=== PATIENT | female | born 1955 ===

== ENCOUNTER 2018-09-19 16:25 | Inpatient (IN) | payer MEDICARE, OTHER ==
--- NOTE | 2018-09-19 17:20 | ED PDOC ---
HPI: SOB/CHF/COPD Time Seen by Provider: 09/19/18 16:48 Chief Complaint (Nursing): Shortness Of Breath Chief Complaint (Provider): Shortness Of Breath History Per: Patient History/Exam Limitations: no limitations Onset/Duration Of Symptoms: Days (today) Additional Complaint(s): 63 year old female with a history of COPD, asthma, htn, dm, and insomnia due to sleep apnea presents to the ED with shortness of breath onset today. Patient reports she had an asthma attack associated wheezing, prompting her to call an ambulance. Wheezing has since resolved. Patient is currently on medications for COPD and asthma and is taking antibiotics. She is on 3 L of oxygen at home. Patient has a bariatric surgery scheduled for next week. PMD: Stacia Ritter Past Medical History Reviewed: Historical Data, Nursing Documentation, Vital Signs Vital Signs: Last Vital Signs Temp 99.2 F 09/19/18 16:37 Pulse Resp BP 140/82 09/19/18 16:37 Pulse Ox 88 L 09/19/18 16:37 - Medical History PMH: Arthritis, Asthma, COPD (ASTHMA), Diabetes, HTN, Hypercholesterolemia, Chronic Kidney Disease - Surgical History Other surgeries: partial thyroidectomy (x20 years ago) - Family History Family History: States: Unknown Family Hx - Immunization History Hx Tetanus Toxoid Vaccination: No Hx Influenza Vaccination: No Hx Pneumococcal Vaccination: No - Home Medications Home Medications: Ambulatory Orders Medication Instructions Recorded RX: Allopurinol [Zyloprim] 100 mg PO BID 03/11/17 RX: Atorvastatin [Lipitor] 10 mg PO DAILY 03/11/17 RX: Furosemide [Lasix] 40 mg PO MWF 03/11/17 RX: Linagliptin [Tradjenta] 5 mg PO DAILY 03/11/17 RX: Montelukast [Singulair] 10 mg PO DAILY 03/11/17 RX: Sevelamer Carbonate [Renvela] 800 mg PO TID 03/11/17 Albuterol HFA [Ventolin HFA 90 90 mcg Q4 09/19/18 mcg/actuation (8 g)] Diclofenac Sodium [Voltaren] 100 g .ROUTE PRN PRN 09/19/18 Fluticasone/Vilanterol [Breo 1 each IH DAILY 09/19/18 Ellipta 200-25 Mcg INH] Olmesartan/Hydrochlorothiazide 1 tab PO DAILY 09/19/18 [Olmesartan-Hctz 40-12.5 mg Tab] RX: Albuterol 0.083% [Albuterol 0.083 % IH DAILY 09/19/18 0.083% Inhal Clarisse (2.5 mg/3 ml) UD] RX: Carvedilol [Coreg] 6.25 mg PO DAILY 09/19/18 RX: Ketoconazole 2% Cr [Nizoral] 2 % TOP QWK 09/19/18 RX: Levothyroxine [Synthroid] 75 mcg PO DAILY 09/19/18 - Allergies Allergies/Adverse Reactions: Allergies Allergy/AdvReac Type Severity Reaction Status Date / Time No Known Allergies Allergy Verified 05/03/18 18:02 Review of Systems ROS Statement: Except As Marked, All Systems Reviewed And Found Negative Respiratory: Positive for: Shortness of Breath, Wheezing Physical Exam - Reviewed Nursing Documentation Reviewed: Yes Vital Signs Reviewed: Yes - Physical Exam Appears: Positive for: No Acute Distress Head Exam: Positive for: ATRAUMATIC, NORMOCEPHALIC Skin: Positive for: Normal Color, Warm, Dry Eye Exam: Positive for: EOMI, Normal appearance, PERRL Neck: Positive for: Normal, Painless ROM, Supple Cardiovascular/Chest: Positive for: Regular Rate, Rhythm. Negative for: Murmur Respiratory: Positive for: Normal Breath Sounds. Negative for: Respiratory Dis tress Gastrointestinal/Abdominal: Positive for: Normal Exam, Soft, Other (obese). Negative for: Tenderness Extremity: Positive for: Normal ROM (upper and lower). Negative for: Deformity Neurologic/Psych: Positive for: Alert, Oriented (x3) - Laboratory Results Result Diagrams: 09/19/18 17:50 09/19/18 17:50 - ECG O2 Sat by Pulse Oximetry: 88 (RA) Pulse Ox Interpretation: Normal Medical Decision Making Medical Decision Making: Time: 1658 Impression: shortness of breath Differential diagnoses include but are not limited to: COPD, asthma, underlying PE, rule out pna. Plan: --ABG --EKG --BNP --BMP --Troponin --U dip --CBC --D Dimer --CXR Scribe Attestation: Documented by Mayra Hogue, acting as a scribe for Pricilla Arce MD. Provider Scribe Attestation: All medical record entries made by the Scribe were at my direction and personally dictated by me. I have reviewed the chart and agree that the record accurately reflects my personal performance of the history, physical exam, medical decision making, and the department course for this patient. I have also personally directed, reviewed, and agree with the discharge instructions and disposition. Disposition - Clinical Impression Clinical Impression: CHF exacerbation, COPD (chronic obstructive pulmonary disease) - Patient ED Disposition Is Patient to be Admitted: Yes Discussed With : Vivek Erazo Doctor Will See Patient In The: Hospital Counseled Patient/Family Regarding: Studies Performed, Diagnosis - Disposition Disposition Time: 19:00 Condition: FAIR - Pt Status Changed To: Hospital Disposition Of: Observation - POA Present On Arrival: None
[2018-09-19 17:40] LABS: ABG ALLEN TEST YES; ARTERIAL BLOOD GAS HCO3 27.3 mmol/L (21-28); ARTERIAL BLOOD GAS HEMOGLOBIN 15.8 g/dL (11.7-17.4); ARTERIAL BLOOD GAS O2 CAPACITY 20.9 mL/dL (16-24); ARTERIAL BLOOD GAS O2 CONTENT 19.1 ML/dL (15-23); ARTERIAL BLOOD GAS O2 SAT 91.3 % (95-98); ARTERIAL BLOOD GAS PCO2 54 mm/Hg (35-45); ARTERIAL BLOOD GAS PH 7.36 (7.35-7.45); ARTERIAL BLOOD GAS PO2 52 mm/Hg (80-100); ARTERIAL BLOOD GAS TCO2 32.2 mmol/L (22-28)
[2018-09-19] MEDS ORDERED: Albuterol-Ipratrop 3 mg / 0.5 (3 ml) UD INH STA (17:48)
[2018-09-19 18:00] LABS: BASO # 0.1 K/uL (0.0-0.2); BASO % 1.4 % (0.0-2.0); EOS # 0.2 K/uL (0.0-0.7); EOS % 2.7 % (0.0-4.0); HEMOGLOBIN 15.8 g/dL (12.0-16.0); LYMPH # 0.8 K/uL (1.0-4.3); LYMPH % 9.3 % (20.0-40.0); MEAN CELL VOLUME 87.5 fl (81.0-99.0); MEAN CORPUSCULAR HEMOGLOBIN 29.1 pg (27.0-31.0); MEAN CORPUSCULAR HGB CONC 33.3 g/dL (33.0-37.0); MEAN PLATELET VOLUME 8.7 fl (7.2-11.7); MONO # 0.6 K/uL (0.0-0.8); MONO % 6.9 % (0.0-10.0); NEUT # 7.1 K/uL (1.8-7.0); NEUT % 79.7 % (50.0-75.0); NRBC % 0.1 % (0.0-0.0); PLATELET COUNT 247 K/uL (130-400); RBC 5.43 Mil/uL (3.80-5.20); RED CELL DISTRIBUTION WIDTH 20.9 % (11.5-14.5); WHITE BLOOD COUNT 8.9 K/uL (4.8-10.8)
[2018-09-19 18:10] LABS: CALCIUM 9.2 mg/dL (8.4-10.2)
[2018-09-19] MEDS ORDERED: Albuterol-Ipratrop 3 mg / 0.5 (3 ml) UD ONE (18:13)
[2018-09-19 18:22] LABS: TROPONIN I 0.036 ng/mL (0.00-0.120)
[2018-09-19 21:37] LABS: BANDS 2 % (0-2); BASOPHIL 1 % (0-2); EOSINOPHIL 3 % (0-7); HYPOCHROMIC SLIGHT; LYMPHOCYTE 11 % (20-50); MONOCYTE 7 % (0-10); NEUTROPHIL 76 % (42-75); PLATELET ESTIMATE NORMAL (NORMAL); TOTAL CELLS COUNTED 100
[2018-09-19] MEDS: Insulin Regular 100 units/ml SC SCH (22:40)
[2018-09-19 23:06] VITALS: BMI 40.0
[2018-09-19] MEDS: Albuterol-Ipratrop 3 mg / 0.5 (3 ml) UD INH SCH (23:54)
[2018-09-20] MEDS: Albuterol-Ipratrop 3 mg / 0.5 (3 ml) UD INH SCH ×6 (04:33→23:31)
[2018-09-20] MEDS: Levothyroxine 75 MCG TAB PO SCH (05:59)
[2018-09-20] MEDS ORDERED: Sodium Chloride 3% for Inhalation 4 ML VIAL.NEB IH PRN (08:34)
[2018-09-20] MEDS ORDERED: Enoxaparin 60 mg Syringe SC SCH (09:00)
[2018-09-20] MEDS ORDERED: Levothyroxine 75 MCG TAB PO SCH (09:00)
[2018-09-20] MEDS ORDERED: methylPREDNISolone 60 MG in Sodium Chloride 0.9% 50 ML IV SCH (09:00)
--- NOTE | 2018-09-20 09:10 | CARD ---
APPROVED REPORT Date of service: 09/19/2018 EKG Measurement Heart [id number] <Conclusion> Normal sinus rhythm Possible Left atrial enlargement Left axis deviation Anterolateral infarct, age undetermined Abnormal ECG
[2018-09-20] MEDS: Fluticasone-Salmeterol 250-50mcg Diskus IH SCH ×2 (09:26→21:16)
[2018-09-20] MEDS: Insulin Regular 100 units/ml SC SCH ×4 (09:28→23:00)
[2018-09-20 09:35] LABS: CALCIUM 9.7 mg/dL (8.4-10.2)
[2018-09-20 09:47] LABS: TROPONIN I 0.029 ng/mL (0.00-0.120)
[2018-09-20] MEDS: Enoxaparin 30 mg Syringe SC SCH (10:22)
--- NOTE | 2018-09-20 10:40 | CP.PCM.CON ---
History of Present Illness - History of Present Illness History of Present Illness: 63 y/o female admitted with exacerbation of COPD / Asthma Pt claims that she started with SOB / MARSHALL 1-2 weeks ago but became acutely SOB prior to calling Ambulance ++pedal edema BNP: 15,600 this AM EKG: normal Troponin: neg PMH: Arthritis, Asthma, COPD Diabetes, HTN, Hypercholesterolemia, Chronic Kidney Disease partial thyroidectomy Past Patient History - Infectious Disease Hx of Infectious Diseases: None - Past Medical History & Family History Past Medical History?: Yes - Past Social History Smoking Status: Former Smoker - CARDIAC Hx Hypercholesterolemia: Yes Hx Hypertension: Yes - PULMONARY Hx Asthma: Yes Hx Chronic Obstructive Pulmonary Disease (COPD): Yes (ASTHMA) - NEUROLOGICAL Hx Neurological Disorder: No - HEENT Hx HEENT Problems: Yes Other/Comment: eyeglasses for reading - RENAL Hx Chronic Kidney Disease: Yes - ENDOCRINE/METABOLIC Hx Diabetes Mellitus Type 2: Yes - HEMATOLOGICAL/ONCOLOGICAL Hx Blood Disorders: No - INTEGUMENTARY Hx Dermatological Problems: No - MUSCULOSKELETAL/RHEUMATOLOGICAL Hx Arthritis: Yes - GASTROINTESTINAL Hx Gastrointestinal Disorders: No - GENITOURINARY/GYNECOLOGICAL Hx Genitourinary Disorders: No - PSYCHIATRIC Hx Substance Use: No - SURGICAL HISTORY Hx Section: Yes - ANESTHESIA Hx Anesthesia: Yes Hx Anesthesia Reactions: No Hx Malignant Hyperthermia: No Meds Allergies/Adverse Reactions: Allergies Allergy/AdvReac Type Severity Reaction Status Date / Time No Known Allergies Allergy Verified 05/03/18 18:02 - Medications Medications: Current Medications Albuterol/Ipratropium (Duoneb 3 Mg/0.5 Mg (3 Ml) Ud) 3 ml INH RQ4 [facility] Last Admin: 09/20/18 07:49 Dose: 3 ml Allopurinol (Zyloprim) 100 mg PO BID [facility] Last Admin: 09/20/18 09:33 Dose: 100 mg Atorvastatin Calcium (Lipitor) 10 mg PO DAILY [facility] Last Admin: 09/20/18 09:31 Dose: 10 mg Carvedilol (Coreg) 6.25 mg PO Q12 [facility] Last Admin: 09/20/18 09:27 Dose: 6.25 mg Enoxaparin Sodium (Lovenox) 30 mg SC DAILY [facility]; Protocol Last Admin: 09/20/18 10:22 Dose: 30 mg Furosemide (Lasix) 40 mg IVP Q12 [facility] Last Admin: 09/20/18 09:30 Dose: 40 mg Hydrochlorothiazide (Microzide) 12.5 mg PO DAILY [facility] Last Admin: 09/20/18 09:32 Dose: 12.5 mg Insulin Human Regular (Humulin R) 0 units SC ACCU-CHECK [facility]; Protocol Last Admin: 09/20/18 09:28 Dose: 1 unit Levothyroxine Sodium (Synthroid) 75 mcg PO DAILY@0630 [facility] Last Admin: 09/20/18 05:59 Dose: 75 mcg Losartan Potassium (Cozaar) 100 mg PO DAILY [facility] Last Admin: 09/20/18 09:28 Dose: 100 mg Methylprednisolone (Solu-Medrol) 60 mg IV Q12 [facility] Last Admin: 09/20/18 09:35 Dose: 60 mg Montelukast Sodium (Singulair) 10 mg PO DAILY [facility] Last Admin: 09/20/18 09:33 Dose: 10 mg Fluticasone/Salmeterol (Advair Diskus 250/50) 1 puff IH Q12 [facility] Last Admin: 09/20/18 09:26 Dose: 1 puff Sevelamer Carbonate (Renvela) 800 mg PO TID [facility] Last Admin: 09/20/18 09:32 Dose: 800 mg Sitagliptin Phosphate (Januvia) 25 mg PO DAILY [facility] Last Admin: 09/20/18 09:30 Dose: 25 mg Physical Exam - Constitutional Appears: No Acute Distress - Head Exam Head Exam: NORMAL INSPECTION - Eye Exam Eye Exam: Normal appearance - ENT Exam ENT Exam: Normal Exam - Respiratory Exam Respiratory Exam: Decreased Breath Sounds - Cardiovascular Exam Cardiovascular Exam: REGULAR RHYTHM Results - Vital Signs Recent Vital Signs: Last Vital Signs Temp 98.0 F 09/20/18 07:53 Pulse 87 09/20/18 09:28 Resp 18 09/20/18 07:53 BP 144/82 09/20/18 09:30 Pulse Ox 91 L 09/20/18 07:53 - Labs Result Diagrams: 09/19/18 17:50 09/20/18 06:30 Labs: Laboratory Results - last 24 hr 09/19/18 09/19/18 09/19/18 17:12 17:50 17:50 WBC 8.9 RBC 5.43 H Hgb 15.8 Hct 47.5 H MCV 87.5 MCH 29.1 MCHC 33.3 RDW 20.9 H Plt Count 247 MPV 8.7 Neut % (Auto) 79.7 H Lymph % (Auto) 9.3 L [place] % (Auto) 6.9 Eos % (Auto) 2.7 Baso % (Auto) 1.4 Neut # (Auto) 7.1 H Lymph # (Auto) 0.8 L [place] # (Auto) 0.6 Eos # (Auto) 0.2 Baso # (Auto) 0.1 Neutrophils % (Manual) 76 H Band Neutrophils % 2 Lymphocytes % (Manual) 11 L Monocytes % (Manual) 7 Eosinophils % (Manual) 3 Basophils % (Manual) 1 Platelet Estimate Normal Hypochromasia (manual) Slight pCO2 54 H pO2 52 L HCO3 27.3 ABG pH 7.36 ABG Total CO2 32.2 H ABG O2 Saturation 91.3 L ABG O2 Content 19.1 ABG Base Excess 3.5 H ABG Hemoglobin 15.8 ABG Carboxyhemoglobin 3.4 H POC ABG HHb (Measured) 8.2 H ABG Methemoglobin 2.3 ABG O2 Capacity 20.9 Hugo Test Yes A-a O2 Difference 94.0 Hgb O2 Saturation 86.1 L FiO2 30.0 Blood Gas Comments 2l/m.nc Crit Value Read Back N Sodium 140 Potassium 4.6 Chloride 99 Carbon Dioxide 29 Anion Gap 17 BUN 42 H Creatinine 1.6 H Est GFR ( Amer) 39 Est GFR (Non-Af Amer) 32 POC Glucose (mg/dL) Random Glucose 144 H Calcium 9.2 Troponin I 0.0360 NT-Pro-B Natriuret Pep 8470 H Triglycerides Cholesterol LDL Cholesterol Direct HDL Cholesterol Thyroxine (T4) TSH 3rd Generation 09/19/18 09/20/18 09/20/18 22:39 05:13 06:30 WBC RBC Hgb Hct MCV MCH MCHC RDW Plt Count MPV Neut % (Auto) Lymph % (Auto) [place] % (Auto) Eos % (Auto) Baso % (Auto) Neut # (Auto) Lymph # (Auto) [place] # (Auto) Eos # (Auto) Baso # (Auto) Neutrophils % (Manual) Band Neutrophils % Lymphocytes % (Manual) Monocytes % (Manual) Eosinophils % (Manual) Basophils % (Manual) Platelet Estimate Hypochromasia (manual) pCO2 pO2 HCO3 ABG pH ABG Total CO2 ABG O2 Saturation ABG O2 Content ABG Base Excess ABG Hemoglobin ABG Carboxyhemoglobin POC ABG HHb (Measured) ABG Methemoglobin ABG O2 Capacity Hugo Test A-a O2 Difference Hgb O2 Saturation FiO2 Blood Gas Comments Crit Value Read Back Sodium 140 Potassium 3.9 Chloride 97 L Carbon Dioxide 28 Anion Gap 19 BUN 45 H Creatinine 1.9 H Est GFR ( Amer) 32 Est GFR (Non-Af Amer) 27 POC Glucose (mg/dL) 126 H 195 H Random Glucose 231 H Calcium 9.7 Troponin I 0.0290 NT-Pro-B Natriuret Pep 18535 H Triglycerides 56 Cholesterol 140 LDL Cholesterol Direct 45 HDL Cholesterol 81 H Thyroxine (T4) 5.88 TSH 3rd Generation 0.94 Assessment & Plan (1) Acute on chronic systolic congestive heart failure Assessment and Plan: Agree with Lasix 40mg IV BID will follow Status: Acute (2) Asthma exacerbation Status: Acute (3) COPD exacerbation Status: Resolved
--- NOTE | 2018-09-20 14:08 | RAD ---
Date of service: 09/19/2018 PROCEDURE: CHEST RADIOGRAPH, 1 VIEW HISTORY: dyspnea COMPARISON: None available. FINDINGS: LUNGS: Mild pulmonary vascular congestion. PLEURA: No pneumothorax or pleural fluid seen. CARDIOVASCULAR: No aortic atherosclerotic calcification present. Cardiomegaly. OSSEOUS STRUCTURES: No significant abnormalities. VISUALIZED UPPER ABDOMEN: Normal. OTHER FINDINGS: None. IMPRESSION: Mild CHF. Findings accentuated by technique including poor inspiratory effort and under penetrated exposure.
--- NOTE | 2018-09-20 20:11 | HP ---
HISTORY OF PRESENT ILLNESS: Ms. hSea is a 63-year-old morbidly obese female who was admitted via the emergency room because of sudden onset of shortness of breath on the day of admission. She indicates that she has a history of chronic obstructive pulmonary disease, hypertension, diabetes mellitus, sleep apnea syndrome, recurrent insomnia, pedal edema and questionable coronary artery disease. She also has a history of diabetes mellitus and hypertension. FAMILY HISTORY: Noncontributory. SOCIAL HISTORY: Socially, she quit smoking many years ago, does not drink alcohol. Lives at home with her daughter. REVIEW OF SYSTEMS: Remarkable for occasional shortness of breath. PAST SURGICAL HISTORY: As part of her surgical history, she had a partial thyroidectomy about 20 years ago. PHYSICAL EXAMINATION: GENERAL: The patient is morbidly obese. She is alert, oriented, appears to be comfortable this morning. VITAL SIGNS: Blood pressure 140/82, , respiratory rate 20 per minute, O2 saturation 91% on nasal cannula oxygen, temperature maximum 98 degrees Fahrenheit with a pulse rate of 87 per minute. SKIN: Shows fair turgor. Pupils are equal, round and reactive to light and accommodation. Mouth shows fair hygiene. LUNGS: Poor aeration bilaterally with audible wheezing and rales. HEART: S1, S2. ABDOMEN: Soft, nontender. No organomegaly. EXTREMITIES: Trace edema of both lower extremities. CENTRAL NERVOUS SYSTEM: Exam is grossly intact. LABORATORY DATA: Remarkable for sodium of 140, potassium 4.6, BUN 42, creatinine 1.6, serum glucose 144. Troponin 0.0360. ProBNP 8470 which is elevated. WBC 8.9, hemoglobin 15.8, platelet count 247,000. Arterial blood gas done on 2 L nasal cannula, pH of 7.36, pCO2 of 54, pO2 of 52 and O2 saturation 91.3. Chest x-ray official report pending. Due to the patient's poor habitus, interpretation is difficult. EKG is remarkable for normal sinus rhythm, possible left atrial enlargement, left axis deviation, anteroseptal infarct age undetermined. IMPRESSION: Acute congestive heart failure, one has to rule out acute coronary syndrome; acute exacerbation of chronic obstructive pulmonary disease; history of obstructive sleep apnea syndrome; morbid obesity; history of hypertension; history of diabetes mellitus with hyperglycemia type 2, poorly controlled; history of poor compliance to therapy; history of partial thyroidectomy in the past. PLAN: Intravenous diuretics, oxygen as well as bronchodilators. Would obtain Cardiology evaluation. The patient wants to go home today and she is advised against that. We will discuss with her daughters before she decides on what to do. We will continue therapy as ordered. Further therapy will depend on findings. Vivek Erazo MD
--- NOTE | 2018-09-21 00:57 | CARD ---
APPROVED REPORT Date of service: 09/20/2018 EXAM: Two-dimensional and M-mode echocardiogram with Doppler and color Doppler. Other Information Quality : GoodRhythm : NSR INDICATION Congestive Heart Failure COPD 2D DIMENSIONS IVSd1.85 (0.7-1.1cm)LVDd3.23 (3.9-5.9cm) LVOT Diameter2.08 (1.8-2.4cm)PWd1.92 (0.7-1.1cm) IVSs2.12 (0.8-1.2cm)LVDs1.94 (2.5-4.0cm) FS (%) 40.1 %PWs2.36 (0.8-1.2cm) M-Mode DIMENSIONS Left Atrium (MM)4.41 (2.5-4.0cm)IVSd1.91 (0.7-1.1cm) Aortic Root2.91 (2.2-3.7cm)LVDd3.26 (4.0-5.6cm) Aortic Cusp Exc.1.74 (1.5-2.0cm)PWd2.00 (0.7-1.1cm) IVSs2.38 cmFS (%) 42 % LVDs1.88 (2.0-3.8cm)PWs2.09 cm Aortic Valve AoV Peak Jppvtfvz636.7cm/sAoV VTI26.2cmAO Peak GR.8mmHg LVOT Peak Sozpsebr76.6cm/[place] Mean GR.5mmHgAVA (VMAX)1.01cm2 Mitral Valve E/A ratio0.0 TDI E/Lateral E'0.0E/Medial E'0.0 Tricuspid Valve TR Peak [id number]/sRAP [id number] Peak Gr.52mmHg [id number] LEFT VENTRICLE The left ventricle is normal size. There is normal left ventricular wall thickness. The left ventricular systolic function is normal. The estimated ejection fraction is 60-65% No regional wall motion abnormalities noted.. The left ventricular diastolic function is normal. No left ventricle thrombus noted on this study. There is no ventricular septal defect visualized. There is no left ventricular aneurysm. There is no mass noted in the left ventricle. RIGHT VENTRICLE The right ventricle is normal size. The right ventricle is mildly dilated. There is normal right ventricular wall thickness. The right ventricular systolic function is normal. Systolic function is mildly to moderately reduced. ATRIA The left atrium size is normal. The left atrium is mildly dilated. The right atrium is mildly dilated. The interatrial septum is intact with no evidence for an atrial septal defect. AORTIC VALVE The aortic valve is normal in structure. No aortic regurgitation is present. There is no aortic valvular stenosis. There is no aortic valvular vegetation. MITRAL VALVE The mitral valve is normal in structure. There is no evidence of mitral valve prolapse. There is no mitral valve stenosis. There is no mitral valve regurgitation noted. TRICUSPID VALVE The tricuspid valve is normal in structure. There is no tricuspid valve regurgitation noted. There is mild to moderate tricuspid regurgitation. Estimated peak RVSP= 62mm Hg. Suggests moderate pulmonary hypertension There is no tricuspid valve prolapse or vegetation. There is no tricuspid valve stenosis. PULMONIC VALVE The pulmonary valve is normal in structure. There is no pulmonic valvular regurgitation. There is no pulmonic valvular stenosis. GREAT VESSELS The aortic root is normal in size. The ascending aorta is normal in size. The pulmonary artery is normal. The IVC is normal in size and collapses >50% with inspiration. PERICARDIAL EFFUSION There is no pericardial effusion. There is no pleural effusion. <Conclusion> Normal LV systolic function The estimated ejection fraction >70% Severe concentric LVH Mild to moderate RV systolic dysfunction with mildly dilated RV Mildly dilated LA and RA Mild to moderate TR . Estimated peak RVSP=62mmHg. Moderate pulmonary hypertension
[2018-09-21] MEDS: Albuterol-Ipratrop 3 mg / 0.5 (3 ml) UD INH SCH ×5 (04:51→19:10)
[2018-09-21] MEDS: Levothyroxine 75 MCG TAB PO SCH (05:41)
[2018-09-21] MEDS: Fluticasone-Salmeterol 250-50mcg Diskus IH SCH ×2 (08:43→21:08)
[2018-09-21] MEDS: Insulin Regular 100 units/ml SC SCH ×4 (08:47→23:00)
[2018-09-21] MEDS: Enoxaparin 30 mg Syringe SC SCH (08:51)
--- NOTE | 2018-09-21 10:22 | CP.PCM.PN ---
Subjective - Date & Time of Evaluation Date of Evaluation: 09/21/18 Time of Evaluation: 10:24 - Subjective Subjective: SOB IMPROVING NO CHEST PAINS STILL COUGHING Objective - Vital Signs/Intake and Output Vital Signs (last 24 hours): Temp Pulse Resp BP Pulse Ox 97.5 F L 78 22 124/73 95 09/21/18 04:47 09/21/18 08:46 09/21/18 04:47 09/21/18 08:49 09/21/18 04:47 - Medications Medications: Current Medications Albuterol/Ipratropium (Duoneb 3 Mg/0.5 Mg (3 Ml) Ud) 3 ml INH RQ4 [facility] Last Admin: 09/21/18 07:19 Dose: 3 ml Allopurinol (Zyloprim) 100 mg PO BID [facility] Last Admin: 09/21/18 08:52 Dose: 100 mg Atorvastatin Calcium (Lipitor) 10 mg PO DAILY [facility] Last Admin: 09/21/18 08:50 Dose: 10 mg Carvedilol (Coreg) 6.25 mg PO Q12 [facility] Last Admin: 09/21/18 08:44 Dose: 6.25 mg Enoxaparin Sodium (Lovenox) 30 mg SC DAILY [facility]; Protocol Last Admin: 09/21/18 08:51 Dose: 30 mg Furosemide (Lasix) 40 mg IVP Q12 [facility] Last Admin: 09/21/18 08:49 Dose: 40 mg Hydrochlorothiazide (Microzide) 12.5 mg PO DAILY [facility] Last Admin: 09/21/18 08:51 Dose: 12.5 mg Insulin Human Regular (Humulin R) 0 units SC ACCU-CHECK [facility]; Protocol Last Admin: 09/21/18 08:47 Dose: 1 unit Levothyroxine Sodium (Synthroid) 75 mcg PO DAILY@0630 [facility] Last Admin: 09/21/18 05:41 Dose: 75 mcg Losartan Potassium (Cozaar) 100 mg PO DAILY [facility] Last Admin: 09/21/18 08:46 Dose: 100 mg Methylprednisolone (Solu-Medrol) 60 mg IV Q12 [facility] Last Admin: 09/21/18 08:53 Dose: 60 mg Montelukast Sodium (Singulair) 10 mg PO DAILY [facility] Last Admin: 09/21/18 08:52 Dose: 10 mg Fluticasone/Salmeterol (Advair Diskus 250/50) 1 puff IH Q12 [facility] Last Admin: 09/21/18 08:43 Dose: 1 puff Sevelamer Carbonate (Renvela) 800 mg PO TID [facility] Last Admin: 09/21/18 08:52 Dose: 800 mg Sitagliptin Phosphate (Januvia) 25 mg PO DAILY [facility] Last Admin: 09/21/18 08:48 Dose: 25 mg - Labs Labs: 09/19/18 17:50 09/20/18 06:30 - Constitutional Appears: Chronically Ill - Head Exam Head Exam: ATRAUMATIC, NORMAL INSPECTION, NORMOCEPHALIC - Eye Exam Eye Exam: EOMI, Normal appearance, PERRL Pupil Exam: NORMAL ACCOMODATION, PERRL - ENT Exam ENT Exam: Mucous Membranes Moist, Normal Exam - Neck Exam Neck Exam: Full ROM, Normal Inspection. absent: Lymphadenopathy - Respiratory Exam Respiratory Exam: Decreased Breath Sounds, Prolonged Expiratory Phase, Rales, NORMAL BREATHING PATTERN - Cardiovascular Exam Cardiovascular Exam: REGULAR RHYTHM, +S1, +S2. absent: Murmur - GI/Abdominal Exam GI & Abdominal Exam: Soft, Normal Bowel Sounds. absent: Tenderness - Rectal Exam Rectal Exam: NORMAL INSPECTION - Extremities Exam Extremities Exam: Full ROM, Normal Capillary Refill, Pedal Edema. absent: Joint Swelling - Back Exam Back Exam: NORMAL INSPECTION - Neurological Exam Neurological Exam: Alert, Awake, CN II-XII Intact, Normal Gait, Oriented x3 - Psychiatric Exam Psychiatric exam: Normal Affect, Normal Mood - Skin Skin Exam: Dry, Intact, Normal Color, Warm Assessment and Plan - Assessment and Plan (Free Text) Assessment: ACUTE CHF ACUTE EXAC OF COPD MORBID OBESITY SLEEP APNEA SYND HYPOTHYROIDISM HYPOXEMIA Plan: CONTINUE CURRENT RX REPEAT LABS IN AM D/C IN AM IF STABLE
--- NOTE | 2018-09-21 14:00 | RAD ---
Date of service: 09/21/2018 HISTORY: CHF COMPARISON: No prior. TECHNIQUE: Chest PA and lateral FINDINGS: LUNGS: Improving pulmonary vascular congestion. No focal infiltrates. PLEURA: No significant pleural effusion identified. No pneumothorax apparent. CARDIOVASCULAR: Atherosclerotic calcifications identified primarily aortic arch. Normal size heart. OSSEOUS STRUCTURES: No significant abnormalities. VISUALIZED UPPER ABDOMEN: Normal. OTHER FINDINGS: None. IMPRESSION: Improving CHF/pulmonary vascular congestion.
[2018-09-21] MEDS: MethylPREDNISolone 40 mg Vial IV SCH (20:13)
--- NOTE | 2018-09-21 22:30 | CP.PCM.PCO ---
Addendum Addendum: 09/21/18 21:32 The publicity writer was called about this 63 y/o F with a PMHx of DM, HTN, CHF and COPD due to tachycardia, HR in 120-150 range. director craft center seemed to showed atrial fibrillation. Pt reported feeling OK, denied chest pain, diaphoresis, aggravated SOB, nausea, vomiting or feeling anxious. Last Duoneb treatment ~19:30pm, 1 hour before presentation. --EKG was ordered and performed by bedside. Atrial fibrillation with RVR noted. --Cardizem 10mg IV administered. --After 15 minutes, HR still in the 130s. --Cardizem drip with cardizem bolus 5mg ordered. --[id number] >2, consider anticoagulation >A/P: 63 y/o F with a PMHx of CHF, HTN and DM2 presented new onset of atrial fibrillation. --Consider changing Albuterol neb to Levalbuterol and to start anticoagulation. --Nurse will contact pt's attending physician for anticoagulation therapy.
[2018-09-21] MEDS: Levalbuterol 1.25 MG/3 ML Inhal Soln UD INH SCH (23:52)
[2018-09-22] MEDS: Levothyroxine 75 MCG TAB PO SCH (05:41)
[2018-09-22 06:14] LABS: HEMOGLOBIN 15.2 g/dL (12.0-16.0); MEAN CELL VOLUME 87.7 fl (81.0-99.0); MEAN CORPUSCULAR HEMOGLOBIN 28.7 pg (27.0-31.0); MEAN CORPUSCULAR HGB CONC 32.7 g/dL (33.0-37.0); RBC 5.3 Mil/uL (3.80-5.20); RED CELL DISTRIBUTION WIDTH 21.1 % (11.5-14.5); WHITE BLOOD COUNT 15.4 K/uL (4.8-10.8)
[2018-09-22] MEDS: Insulin Regular 100 units/ml SC SCH ×4 (06:41→22:19)
[2018-09-22] MEDS: Levalbuterol 1.25 MG/3 ML Inhal Soln UD INH SCH ×3 (07:45→23:38)
[2018-09-22] MEDS: Fluticasone-Salmeterol 250-50mcg Diskus IH SCH ×2 (08:30→21:05)
[2018-09-22] MEDS: Enoxaparin 30 mg Syringe SC SCH (08:33)
[2018-09-22] MEDS: MethylPREDNISolone 40 mg Vial IV SCH (08:46)
--- NOTE | 2018-09-22 10:50 | CP.PCM.PN ---
Subjective - Date & Time of Evaluation Date of Evaluation: 09/22/18 Time of Evaluation: 10:52 - Subjective Subjective: EVENTS OF LAST NIGHT NOTED DEVELOPED RAPID ATRIAL FIB LAST NIGHT DENIES CHEST PAINS OR SOB WANTS TO GO HOME Objective - Vital Signs/Intake and Output Vital Signs (last 24 hours): Temp Pulse Resp BP Pulse Ox 97.7 F 79 18 117/76 94 L 09/22/18 07:59 09/22/18 07:59 09/22/18 07:59 09/22/18 08:34 09/22/18 07:59 Intake and Output: 09/22/18 09/22/18 06:59 18:59 Intake Total 440 Output Total 1 Balance 439 - Medications Medications: Current Medications Allopurinol (Zyloprim) 100 mg PO BID [facility] Last Admin: 09/22/18 08:31 Dose: 100 mg Atorvastatin Calcium (Lipitor) 10 mg PO DAILY [facility] Last Admin: 09/22/18 08:34 Dose: 10 mg Carvedilol (Coreg) 6.25 mg PO Q12 [facility] Last Admin: 09/22/18 08:37 Dose: Not Given Enoxaparin Sodium (Lovenox) 30 mg SC DAILY [facility]; Protocol Last Admin: 09/22/18 08:33 Dose: 30 mg Furosemide (Lasix) 40 mg IVP Q12 [facility] Last Admin: 09/22/18 08:34 Dose: 40 mg Hydrochlorothiazide (Microzide) 12.5 mg PO DAILY [facility] Last Admin: 09/22/18 08:33 Dose: 12.5 mg Diltiazem HCl 125 mg/ Sodium (Chloride) 125 mls @ 5 mls/hr IV .Q24H [facility]; Protocol Stop: 09/22/18 21:17 Last Admin: 09/21/18 22:31 Dose: 5 mg/hr, 5 mls/hr Insulin Human Regular (Humulin R) 0 units SC ACCU-CHECK [facility]; Protocol Last Admin: 09/22/18 06:41 Dose: 2 unit Levalbuterol HCl (Xopenex) 1.25 mg INH RQ8 [facility] Last Admin: 09/22/18 07:45 Dose: 1.25 mg Levothyroxine Sodium (Synthroid) 75 mcg PO DAILY@0630 [facility] Last Admin: 09/22/18 05:41 Dose: 75 mcg Losartan Potassium (Cozaar) 100 mg PO DAILY [facility] Last Admin: 09/22/18 08:37 Dose: Not Given Methylprednisolone (Solu-Medrol) 40 mg IV Q12 [facility] Last Admin: 09/22/18 08:46 Dose: 40 mg Montelukast Sodium (Singulair) 10 mg PO DAILY [facility] Last Admin: 09/22/18 08:32 Dose: 10 mg Fluticasone/Salmeterol (Advair Diskus 250/50) 1 puff IH Q12 [facility] Last Admin: 09/22/18 08:30 Dose: 1 puff Sevelamer Carbonate (Renvela) 800 mg PO TID [facility] Last Admin: 09/22/18 08:32 Dose: 800 mg Sitagliptin Phosphate (Januvia) 25 mg PO DAILY [facility] Last Admin: 09/22/18 08:36 Dose: 25 mg - Labs Labs: 09/22/18 04:30 09/22/18 04:30 - Constitutional Appears: No Acute Distress - Head Exam Head Exam: ATRAUMATIC, NORMAL INSPECTION, NORMOCEPHALIC - Eye Exam Eye Exam: EOMI, Normal appearance, PERRL Pupil Exam: NORMAL ACCOMODATION, PERRL - ENT Exam ENT Exam: Mucous Membranes Moist, Normal Exam - Neck Exam Neck Exam: Full ROM, Normal Inspection. absent: Lymphadenopathy - Respiratory Exam Respiratory Exam: Decreased Breath Sounds, Prolonged Expiratory Phase, NORMAL BREATHING PATTERN - Cardiovascular Exam Cardiovascular Exam: REGULAR RHYTHM, +S1, +S2. absent: Murmur - GI/Abdominal Exam GI & Abdominal Exam: Soft, Normal Bowel Sounds. absent: Tenderness - Rectal Exam Rectal Exam: NORMAL INSPECTION - Extremities Exam Extremities Exam: Full ROM, Normal Capillary Refill, Normal Inspection. absent: Joint Swelling, Pedal Edema - Back Exam Back Exam: NORMAL INSPECTION - Neurological Exam Neurological Exam: Alert, Awake, CN II-XII Intact, Normal Gait, Oriented x3 - Psychiatric Exam Psychiatric exam: Normal Affect, Normal Mood - Skin Skin Exam: Dry, Intact, Normal Color, Warm - Additional Findings Additional findings: TELE--ATRIAL FIB WITH CONTROLLED V RESPONSE Assessment and Plan - Assessment and Plan (Free Text) Assessment: CHF--IMPROVED NEW ONSET ATRIAL FIB ASHD HTN MORBID OBESITY HX OF SLEEP APNEA HYPOTHYROIDISM Plan: CASE DISCUSSED WITH HARD CANDY SPINNER WILL D/C CARDIZEM DRIP AND BEGIN PO CARDIZEM AND ELIQUIS
--- NOTE | 2018-09-22 11:10 | CP.PCM.PN ---
Subjective - Date & Time of Evaluation Date of Evaluation: 09/22/18 Time of Evaluation: 11:00 - Subjective Subjective: Breathing easily no complaints HR controlled Cardizem IV to be d/c ed Started on PO BNP: 6080 Objective - Vital Signs/Intake and Output Vital Signs (last 24 hours): Temp Pulse Resp BP Pulse Ox 97.7 F 79 18 117/76 94 L 09/22/18 07:59 09/22/18 07:59 09/22/18 07:59 09/22/18 08:34 09/22/18 07:59 Intake and Output: 09/22/18 09/22/18 06:59 18:59 Intake Total 440 Output Total 1 Balance 439 - Medications Medications: Current Medications Allopurinol (Zyloprim) 100 mg PO BID [facility] Last Admin: 09/22/18 08:31 Dose: 100 mg Apixaban (Eliquis) 2.5 mg PO DAILY [facility]; Protocol Atorvastatin Calcium (Lipitor) 10 mg PO DAILY [facility] Last Admin: 09/22/18 08:34 Dose: 10 mg Carvedilol (Coreg) 6.25 mg PO Q12 [facility] Last Admin: 09/22/18 08:37 Dose: Not Given Diltiazem HCl (Cardizem) 30 mg PO TID [facility] Furosemide (Lasix) 40 mg PO DAILY [facility] Hydrochlorothiazide (Microzide) 12.5 mg PO DAILY [facility] Last Admin: 09/22/18 08:33 Dose: 12.5 mg Insulin Human Regular (Humulin R) 0 units SC ACCU-CHECK [facility]; Protocol Last Admin: 09/22/18 06:41 Dose: 2 unit Levalbuterol HCl (Xopenex) 1.25 mg INH RQ8 [facility] Last Admin: 09/22/18 07:45 Dose: 1.25 mg Levothyroxine Sodium (Synthroid) 75 mcg PO DAILY@0630 [facility] Last Admin: 09/22/18 05:41 Dose: 75 mcg Losartan Potassium (Cozaar) 100 mg PO DAILY [facility] Last Admin: 09/22/18 08:37 Dose: Not Given Methylprednisolone (Solu-Medrol) 40 mg IV DAILY [facility] Montelukast Sodium (Singulair) 10 mg PO DAILY [facility] Last Admin: 09/22/18 08:32 Dose: 10 mg Fluticasone/Salmeterol (Advair Diskus 250/50) 1 puff IH Q12 [facility] Last Admin: 09/22/18 08:30 Dose: 1 puff Sevelamer Carbonate (Renvela) 800 mg PO TID [facility] Last Admin: 09/22/18 08:32 Dose: 800 mg Sitagliptin Phosphate (Januvia) 25 mg PO DAILY [facility] Last Admin: 09/22/18 08:36 Dose: 25 mg - Labs Labs: 09/22/18 04:30 09/22/18 04:30 Assessment and Plan (1) Acute on chronic systolic congestive heart failure Status: Acute (2) Asthma exacerbation Status: Acute
[2018-09-23 06:11] LABS: HEMOGLOBIN 15.9 g/dL (12.0-16.0); MEAN CELL VOLUME 88.1 fl (81.0-99.0); MEAN CORPUSCULAR HEMOGLOBIN 29.1 pg (27.0-31.0); MEAN CORPUSCULAR HGB CONC 33.1 g/dL (33.0-37.0); RBC 5.47 Mil/uL (3.80-5.20); RED CELL DISTRIBUTION WIDTH 21.1 % (11.5-14.5); WHITE BLOOD COUNT 15.7 K/uL (4.8-10.8)
[2018-09-23] MEDS: Levothyroxine 75 MCG TAB PO SCH (06:30)
[2018-09-23 06:40] LABS: CALCIUM 9.8 mg/dL (8.4-10.2)
[2018-09-23] MEDS: Insulin Regular 100 units/ml SC SCH ×4 (07:45→23:30)
[2018-09-23] MEDS: Levalbuterol 1.25 MG/3 ML Inhal Soln UD INH SCH ×3 (08:15→23:42)
--- NOTE | 2018-09-23 08:58 | CP.PCM.PN ---
Subjective - Date & Time of Evaluation Date of Evaluation: 09/23/18 Time of Evaluation: 09:00 - Subjective Subjective: SOB IMPROVED NO CHEST PAINS CASE DISCUSSED AT LENGHT WITH PT'S DAUGHTER--SHE INDICATES THAT PT IS SCHEDULED FOR BARIATRIC SURGEY SOON--ADVISED AGAINST PROCEDURE UNTILL CARDIAC AND NEPHROLOGY ISSUES RESOLVE Objective - Vital Signs/Intake and Output Vital Signs (last 24 hours): Temp Pulse Resp BP Pulse Ox 97.8 F 66 18 126/83 99 09/23/18 07:47 09/23/18 07:47 09/23/18 07:47 09/23/18 07:47 09/23/18 07:47 - Medications Medications: Current Medications Allopurinol (Zyloprim) 100 mg PO BID [facility] Last Admin: 09/22/18 18:37 Dose: 100 mg Apixaban (Eliquis) 2.5 mg PO BID [facility]; Protocol Last Admin: 09/22/18 17:04 Dose: 2.5 mg Atorvastatin Calcium (Lipitor) 10 mg PO DAILY [facility] Last Admin: 09/22/18 08:34 Dose: 10 mg Carvedilol (Coreg) 6.25 mg PO Q12 [facility] Last Admin: 09/22/18 21:04 Dose: Not Given Diltiazem HCl (Cardizem) 30 mg PO TID [facility] Last Admin: 09/22/18 17:03 Dose: 30 mg Furosemide (Lasix) 40 mg PO DAILY [facility] Hydrochlorothiazide (Microzide) 12.5 mg PO DAILY [facility] Last Admin: 09/22/18 08:33 Dose: 12.5 mg Insulin Human Regular (Humulin R) 0 units SC ACCU-CHECK [facility]; Protocol Last Admin: 09/22/18 22:19 Dose: Not Given Levalbuterol HCl (Xopenex) 1.25 mg INH RQ8 [facility] Last Admin: 09/23/18 08:15 Dose: 1.25 mg Levothyroxine Sodium (Synthroid) 75 mcg PO DAILY@0630 [facility] Last Admin: 09/23/18 06:30 Dose: 75 mcg Losartan Potassium (Cozaar) 100 mg PO DAILY [facility] Last Admin: 09/22/18 08:37 Dose: Not Given Methylprednisolone (Solu-Medrol) 40 mg IV DAILY [facility] Montelukast Sodium (Singulair) 10 mg PO DAILY [facility] Last Admin: 09/22/18 08:32 Dose: 10 mg Fluticasone/Salmeterol (Advair Diskus 250/50) 1 puff IH Q12 [facility] Last Admin: 09/22/18 21:05 Dose: 1 puff Sevelamer Carbonate (Renvela) 800 mg PO TID [facility] Last Admin: 09/22/18 18:36 Dose: 800 mg Sitagliptin Phosphate (Januvia) 25 mg PO DAILY [facility] Last Admin: 09/22/18 08:36 Dose: 25 mg - Labs Labs: 09/23/18 04:50 09/23/18 04:50 - Constitutional Appears: No Acute Distress - Head Exam Head Exam: ATRAUMATIC, NORMAL INSPECTION, NORMOCEPHALIC - Eye Exam Eye Exam: EOMI, Normal appearance, PERRL Pupil Exam: NORMAL ACCOMODATION, PERRL - ENT Exam ENT Exam: Mucous Membranes Moist, Normal Exam - Neck Exam Neck Exam: Full ROM, Normal Inspection. absent: Lymphadenopathy - Respiratory Exam Respiratory Exam: Decreased Breath Sounds, Prolonged Expiratory Phase, NORMAL BREATHING PATTERN - Cardiovascular Exam Cardiovascular Exam: REGULAR RHYTHM, +S1, +S2. absent: Murmur - GI/Abdominal Exam GI & Abdominal Exam: Soft, Normal Bowel Sounds. absent: Tenderness - Rectal Exam Rectal Exam: NORMAL INSPECTION - Extremities Exam Extremities Exam: Full ROM, Normal Capillary Refill, Normal Inspection. absent: Joint Swelling, Pedal Edema - Back Exam Back Exam: NORMAL INSPECTION - Neurological Exam Neurological Exam: Alert, Awake, CN II-XII Intact, Normal Gait, Oriented x3 - Psychiatric Exam Psychiatric exam: Normal Affect, Normal Mood - Skin Skin Exam: Dry, Intact, Normal Color, Warm Assessment and Plan - Assessment and Plan (Free Text) Assessment: CHF--IMPROVED COPD ATRIAL FIB--RSR HX OF [place] SYNDROME ACUTE KIDNEY INJURY DM HTN Plan: HOLD DIURETICS NEPHROLOGY EVAL
--- NOTE | 2018-09-23 09:01 | CARD ---
APPROVED REPORT Date of service: 09/23/2018 EKG Measurement Heart [id number] <Conclusion> Normal sinus rhythm Possible Left atrial enlargement Poor R wave progression in Precordial leads Abnormal ECG
--- NOTE | 2018-09-23 09:12 | CARD ---
APPROVED REPORT Date of service: 09/21/2018 EKG Measurement Heart [id number] <Conclusion> Atrial fibrillation with rapid ventricular response Left axis deviation Poor R wave progression in Precordial leads Abnormal ECG
--- NOTE | 2018-09-23 09:12 | CARD ---
APPROVED REPORT Date of service: 09/21/2018 EKG Measurement Heart [id number] <Conclusion> Atrial fibrillation with rapid ventricular response Anterolateral infarct, age undetermined Abnormal ECG
[2018-09-23] MEDS: Fluticasone-Salmeterol 250-50mcg Diskus IH SCH ×2 (09:15→21:56)
[2018-09-23] MEDS: Sodium Chloride 0.45% 1,000 ML IV SCH (09:45)
[2018-09-23] MEDS: MethylPREDNISolone 40 mg Vial IV SCH (09:47)
--- NOTE | 2018-09-23 15:45 | CP.PCM.PN ---
Subjective - Date & Time of Evaluation Date of Evaluation: 09/23/18 Time of Evaluation: 10:00 - Subjective Subjective: Doing well breathing easily HR controlled Objective - Vital Signs/Intake and Output Vital Signs (last 24 hours): Temp Pulse Resp BP Pulse Ox 97.5 F L 78 18 121/85 96 09/23/18 12:00 09/23/18 12:25 09/23/18 12:00 09/23/18 12:25 09/23/18 12:00 - Medications Medications: Current Medications Allopurinol (Zyloprim) 100 mg PO BID [facility] Last Admin: 09/23/18 09:21 Dose: 100 mg Apixaban (Eliquis) 2.5 mg PO BID [facility]; Protocol Last Admin: 09/23/18 09:17 Dose: 2.5 mg Atorvastatin Calcium (Lipitor) 10 mg PO DAILY [facility] Last Admin: 09/23/18 09:20 Dose: 10 mg Carvedilol (Coreg) 6.25 mg PO Q12 [facility] Last Admin: 09/23/18 09:16 Dose: 6.25 mg Diltiazem HCl (Cardizem) 30 mg PO TID [facility] Last Admin: 09/23/18 12:25 Dose: 30 mg Furosemide (Lasix) 40 mg PO DAILY [facility] Last Admin: 09/23/18 09:20 Dose: Not Given Hydrochlorothiazide (Microzide) 12.5 mg PO DAILY [facility] Last Admin: 09/23/18 12:27 Dose: 12.5 mg Sodium Chloride (Sodium Chloride 0.45%) 1,000 mls @ 50 mls/hr IV .Q20H [facility] Stop: 09/24/18 09:16 Insulin Human Regular (Humulin R) 0 units SC ACCU-CHECK [facility]; Protocol Last Admin: 09/23/18 12:26 Dose: 4 unit Levalbuterol HCl (Xopenex) 1.25 mg INH RQ8 [facility] Last Admin: 09/23/18 15:17 Dose: 1.25 mg Levothyroxine Sodium (Synthroid) 75 mcg PO DAILY@0630 [facility] Last Admin: 09/23/18 06:30 Dose: 75 mcg Losartan Potassium (Cozaar) 100 mg PO DAILY [facility] Last Admin: 09/23/18 12:25 Dose: 100 mg Methylprednisolone (Solu-Medrol) 40 mg IV DAILY [facility] Last Admin: 09/23/18 09:47 Dose: 40 mg Montelukast Sodium (Singulair) 10 mg PO DAILY [facility] Last Admin: 09/23/18 09:21 Dose: 10 mg Fluticasone/Salmeterol (Advair Diskus 250/50) 1 puff IH Q12 [facility] Last Admin: 09/23/18 09:15 Dose: 1 puff Sevelamer Carbonate (Renvela) 800 mg PO TID [facility] Last Admin: 09/23/18 12:27 Dose: 800 mg Sitagliptin Phosphate (Januvia) 25 mg PO DAILY [facility] Last Admin: 09/23/18 09:19 Dose: 25 mg - Labs Labs: 09/23/18 04:50 09/23/18 04:50 Assessment and Plan (1) Acute on chronic systolic congestive heart failure Status: Acute (2) Asthma exacerbation Status: Acute
--- NOTE | 2018-09-23 19:28 | CP.PCM.CON ---
History of Present Illness - History of Present Illness History of Present Illness: pt is seen and examined, full consult is dictated #[id number] 1.paramjit on ckd 2.htn 3.dm 4.exaccerbation of copd 5. chf check urine lytes, osm, ivf 1/2 ns at 50 ml/hr bmp in am Past Patient History - Infectious Disease Hx of Infectious Diseases: None - Past Medical History & Family History Past Medical History?: Yes - Past Social History Smoking Status: Former Smoker - CARDIAC Hx Hypercholesterolemia: Yes Hx Hypertension: Yes - PULMONARY Hx Asthma: Yes Hx Chronic Obstructive Pulmonary Disease (COPD): Yes (ASTHMA) - NEUROLOGICAL Hx Neurological Disorder: No - HEENT Hx HEENT Problems: Yes Other/Comment: eyeglasses for reading - RENAL Hx Chronic Kidney Disease: Yes - ENDOCRINE/METABOLIC Hx Diabetes Mellitus Type 2: Yes - HEMATOLOGICAL/ONCOLOGICAL Hx Blood Disorders: No - INTEGUMENTARY Hx Dermatological Problems: No - MUSCULOSKELETAL/RHEUMATOLOGICAL Hx Arthritis: Yes - GASTROINTESTINAL Hx Gastrointestinal Disorders: No - GENITOURINARY/GYNECOLOGICAL Hx Genitourinary Disorders: No - PSYCHIATRIC Hx Substance Use: No - SURGICAL HISTORY Hx Section: Yes - ANESTHESIA Hx Anesthesia: Yes Hx Anesthesia Reactions: No Hx Malignant Hyperthermia: No Meds Allergies/Adverse Reactions: Allergies Allergy/AdvReac Type Severity Reaction Status Date / Time No Known Allergies Allergy Verified 05/03/18 18:02 - Medications Medications: Current Medications Allopurinol (Zyloprim) 100 mg PO BID [facility] Last Admin: 09/23/18 16:41 Dose: 100 mg Apixaban (Eliquis) 2.5 mg PO BID [facility]; Protocol Last Admin: 09/23/18 16:39 Dose: 2.5 mg Atorvastatin Calcium (Lipitor) 10 mg PO DAILY [facility] Last Admin: 09/23/18 09:20 Dose: 10 mg Carvedilol (Coreg) 6.25 mg PO Q12 [facility] Last Admin: 09/23/18 09:16 Dose: 6.25 mg Diltiazem HCl (Cardizem) 30 mg PO TID [facility] Last Admin: 09/23/18 16:39 Dose: 30 mg Furosemide (Lasix) 40 mg PO DAILY [facility] Last Admin: 09/23/18 09:20 Dose: Not Given Hydrochlorothiazide (Microzide) 12.5 mg PO DAILY [facility] Last Admin: 09/23/18 12:27 Dose: 12.5 mg Sodium Chloride (Sodium Chloride 0.45%) 1,000 mls @ 50 mls/hr IV .Q20H [facility] Stop: 09/24/18 09:16 Last Admin: 09/23/18 09:45 Dose: 50 mls/hr Insulin Human Regular (Humulin R) 0 units SC ACCU-CHECK [facility]; Protocol Last Admin: 09/23/18 16:40 Dose: 3 unit Levalbuterol HCl (Xopenex) 1.25 mg INH RQ8 [facility] Last Admin: 09/23/18 15:17 Dose: 1.25 mg Levothyroxine Sodium (Synthroid) 75 mcg PO DAILY@0630 [facility] Last Admin: 09/23/18 06:30 Dose: 75 mcg Losartan Potassium (Cozaar) 100 mg PO DAILY [facility] Last Admin: 09/23/18 12:25 Dose: 100 mg Methylprednisolone (Solu-Medrol) 40 mg IV DAILY [facility] Last Admin: 09/23/18 09:47 Dose: 40 mg Montelukast Sodium (Singulair) 10 mg PO DAILY [facility] Last Admin: 09/23/18 09:21 Dose: 10 mg Fluticasone/Salmeterol (Advair Diskus 250/50) 1 puff IH Q12 [facility] Last Admin: 09/23/18 09:15 Dose: 1 puff Sevelamer Carbonate (Renvela) 800 mg PO TID [facility] Last Admin: 09/23/18 16:41 Dose: 800 mg Sitagliptin Phosphate (Januvia) 25 mg PO DAILY [facility] Last Admin: 09/23/18 09:19 Dose: 25 mg Results - Vital Signs Recent Vital Signs: Last Vital Signs Temp 97.7 F 09/23/18 16:25 Pulse 78 09/23/18 16:39 Resp 18 09/23/18 16:25 BP 125/81 09/23/18 16:39 Pulse Ox 94 L 09/23/18 16:25 - Labs Result Diagrams: 09/23/18 04:50 09/23/18 04:50 Labs: Laboratory Results - last 24 hr 09/22/18 09/23/18 09/23/18 20:49 04:50 04:50 WBC 15.7 H RBC 5.47 H Hgb 15.9 Hct 48.2 H MCV 88.1 MCH 29.1 MCHC 33.1 RDW 21.1 H Plt Count 269 Sodium 134 Potassium 4.4 Chloride 92 L Carbon Dioxide 28 Anion Gap 18 BUN 112 H* D Creatinine 3.3 H Est GFR ( Amer) 17 Est GFR (Non-Af Amer) 14 POC Glucose (mg/dL) 282 H Random Glucose 223 H Calcium 9.8 09/23/18 09/23/18 09/23/18 06:09 11:00 15:30 WBC RBC Hgb Hct MCV MCH MCHC RDW Plt Count Sodium Potassium Chloride Carbon Dioxide Anion Gap BUN Creatinine Est GFR ( Amer) Est GFR (Non-Af Amer) POC Glucose (mg/dL) 279 H 316 H 292 H Random Glucose Calcium
[2018-09-24 06:15] LABS: CALCIUM 9.5 mg/dL (8.4-10.2)
[2018-09-24] MEDS: Levothyroxine 75 MCG TAB PO SCH (06:27)
[2018-09-24] MEDS: Sodium Chloride 0.45% 1,000 ML IV SCH ×2 (06:27→12:32)
--- NOTE | 2018-09-24 07:07 | CON ---
DATE: 09/23/2018 RENAL CONSULTATION LOCATION: The patient is located in room 401, bed 1. REQUESTED BY: Vivek Erazo MD REASON FOR FOLLOWUP: Acute renal failure, chronic kidney disease, for further evaluation. HISTORY OF PRESENT ILLNESS: Ms. Shae is a 63-year-old obese female with a past medical history significant for diabetes for 10 years, hypertension for 15 years, hyperlipidemia, chronic kidney disease with a baseline creatinine about 2 for the last four years, and also history of CHF, asthma who was admitted with chief complaints of shortness of breath and also dry cough and swelling of the legs for about three days prior to the admission. The patient is being treated for CHF and exacerbation of asthma with vigorous diuresis. Now, the patient was found to have worsening renal function and renal consultation is quickly requested for further evaluation. The patient denies any chest pain, palpitation. Denies any nausea, vomiting, or diarrhea. Denies any abdominal pain. No fever. No cough. Complains of trace edema in the lower extremities. PAST MEDICAL HISTORY: Significant for hypertension for 15 years, diabetes for 10 years, hyperlipidemia, asthma, COPD, questionable CHF. PAST SURGICAL HISTORY: Status post laser treatment for glaucoma and x1 in 1968. ALLERGIES: NO KNOWN DRUG ALLERGIES. SOCIAL HISTORY: The patient is an ex-smoker, quit about 30 years ago, used to smoke 1 to 1-1/2 pack per day for about 15 years. The patient also ex-alcohol abuse. No drug abuse. PERSONAL HISTORY: She is single, . She has two children. FAMILY HISTORY: Not significant. CURRENT MEDICATIONS: Include as follows: Advair 1 puff every 12 hours, Cardizem 30 mg p.o. t.i.d., Coreg 6.25 mg p.o. every 12 hours, losartan 100 mg p.o. daily, Eliquis 2.5 mg p.o. b.i.d., Januvia 25 mg p.o. daily, Lasix 40 mg p.o. daily on hold, Lipitor 10 mg p.o. daily, hydrochlorothiazide 12.5 mg p.o. daily, Renvela 800 mg p.o. t.i.d., Singulair 10 mg p.o. daily, IV fluids half normal saline was started this morning at 50 mL per hour, Solu-Medrol 40 mg IV daily, levothyroxine 75 mcg p.o. daily, Xopenex and allopurinol 100 mg p.o. b.i.d. REVIEW OF SYSTEMS: Significant on admission for shortness of breath, cough, and edema of the legs with worsening renal function. All other review of systems reviewed and are negative. PHYSICAL EXAMINATION: VITAL SIGNS: Blood pressure 125/81, pulse 78, respirations about 18, temperature 97.7, saturation 94% to 96%. Height 5 feet 1 inch. Weight is 208 pounds. BMI 39. GENERAL: Mrs. Shea is a 63-year-old elderly female with history of hypertension, diabetes, hyperlipidemia, chronic kidney disease, COPD, asthma; was admitted with cough, shortness of breath. Moderately built, moderately nourished, not in acute distress. At this time, out of bed to chair. HEENT: Pupils normal and reactive to light and accommodation. Conjunctivae pink. Sclerae anicteric. Tongue is moist. Trachea is midline. LUNGS: Symmetric on both sides. Bilateral breath sounds present. No crackles. CARDIOVASCULAR SYSTEM: [place] at the fifth intercostal space, midclavicular line. S1 and S2 audible. No murmur or gallop. ABDOMEN: Protuberant, soft, tympanitic. No guarding. No rigidity. No hepatosplenomegaly. CENTRAL NERVOUS SYSTEM: The patient is alert, awake, oriented x3. Nonfocal neuro examination. Cranial nerves II through XII grossly intact. Sensory and motor system is within normal limits. EXTREMITIES: No cyanosis, no clubbing, no edema. LABORATORY DATA: Her laboratory data include as follows: As of 09/23/2018; WBC 15.7, hemoglobin 15.9, hematocrit is 48.2, and platelets 269. Sodium 134, potassium 4.4, chloride 92, CO2 of 8, BUN 112, creatinine 3.3, glucose 223, calcium 9.8. Urine osmolality 437, urine creatinine is 72.8, urine sodium is 19, and urine potassium is 29.5. Chest x-ray as of 09/19/2018, on admission, mild CHF findings, technique including poor inspiratory effort and under penetrated exposure. As of 09/21/2018, repeat chest x-ray, improving CHF, pulmonary vascular congestion. ASSESSMENT AND PLAN: In summary, Mrs. Shea is a 63-year-old elderly obese female with history of hypertension, diabetes, hyperlipidemia, ex-smoker, chronic obstructive lung disease, asthma, chronic kidney disease with a baseline creatinine about 2 who was admitted with shortness of breath and dry cough and being treated for congestive heart failure and also exacerbation of chronic obstructive lung disease and asthma. Her baseline creatinine on admission on 09/19/2018 was 1.6, 09/20/2018 was 1.9, and 09/22/2018, creatinine 2.6, and on 09/23/2018, creatinine 3.3. BUN on admission, 09/19/2018, was 42; 09/20/2018 was 45; 09/22/2018 was 90; and 09/23/2018, BUN is 112. 1. Acute renal failure and chronic kidney disease with worsening azotemia, mostly likely secondary to diuretics with intravascular depletion and also secondary to IV steroids, Solu-medrol. 2. Exacerbation of chronic obstructive pulmonary disease, asthma. 3. Obesity. 4. Diabetes. 5. Hypertension. Blood pressure is under control. PLAN: Discontinue Lasix and discontinue hydrochlorothiazide for now until renal function improves and try to taper off steroids quickly and continue with gentle IV hydration half normal saline about 500 mL per hour. Follow BMP in a.m. We will follow with you. Thank you for allowing me to participate in your patient's care. Case discussed with Dr. Erazo and agree for the plan. Dee Hamlin MD
[2018-09-24] MEDS: Levalbuterol 1.25 MG/3 ML Inhal Soln UD INH SCH ×3 (07:50→23:27)
[2018-09-24] MEDS: Fluticasone-Salmeterol 250-50mcg Diskus IH SCH ×2 (08:22→21:59)
[2018-09-24] MEDS: Insulin Regular 100 units/ml SC SCH ×4 (08:24→22:01)
[2018-09-24] MEDS: MethylPREDNISolone 40 mg Vial IV SCH (08:26)
--- NOTE | 2018-09-24 08:29 | CP.PCM.PN ---
Subjective - Date & Time of Evaluation Date of Evaluation: 09/24/18 Time of Evaluation: 08:30 - Subjective Subjective: DENIES CHEST PAINS OR SOB VSS Objective - Vital Signs/Intake and Output Vital Signs (last 24 hours): Temp Pulse Resp BP Pulse Ox 98.0 F 75 18 135/83 95 09/24/18 07:46 09/24/18 07:46 09/24/18 07:46 09/24/18 07:46 09/24/18 07:46 - Medications Medications: Current Medications Allopurinol (Zyloprim) 100 mg PO BID [facility] Last Admin: 09/23/18 16:41 Dose: 100 mg Apixaban (Eliquis) 2.5 mg PO BID [facility]; Protocol Last Admin: 09/23/18 16:39 Dose: 2.5 mg Atorvastatin Calcium (Lipitor) 10 mg PO DAILY [facility] Last Admin: 09/23/18 09:20 Dose: 10 mg Carvedilol (Coreg) 6.25 mg PO Q12 [facility] Last Admin: 09/23/18 21:57 Dose: Not Given Diltiazem HCl (Cardizem) 30 mg PO TID [facility] Last Admin: 09/23/18 16:39 Dose: 30 mg Furosemide (Lasix) 40 mg PO DAILY [facility] Last Admin: 09/23/18 09:20 Dose: Not Given Hydrochlorothiazide (Microzide) 12.5 mg PO DAILY [facility] Last Admin: 09/23/18 12:27 Dose: 12.5 mg Sodium Chloride (Sodium Chloride 0.45%) 1,000 mls @ 50 mls/hr IV .Q20H [facility] Stop: 09/24/18 09:16 Last Admin: 09/24/18 06:27 Dose: 50 mls/hr Insulin Human Regular (Humulin R) 0 units SC ACCU-CHECK [facility]; Protocol Last Admin: 09/23/18 23:30 Dose: Not Given Levalbuterol HCl (Xopenex) 1.25 mg INH RQ8 [facility] Last Admin: 09/24/18 07:50 Dose: 1.25 mg Levothyroxine Sodium (Synthroid) 75 mcg PO DAILY@0630 [facility] Last Admin: 09/24/18 06:27 Dose: 75 mcg Losartan Potassium (Cozaar) 100 mg PO DAILY [facility] Last Admin: 09/23/18 12:25 Dose: 100 mg Methylprednisolone (Solu-Medrol) 40 mg IV DAILY [facility] Last Admin: 09/23/18 09:47 Dose: 40 mg Montelukast Sodium (Singulair) 10 mg PO DAILY [facility] Last Admin: 09/23/18 09:21 Dose: 10 mg Fluticasone/Salmeterol (Advair Diskus 250/50) 1 puff IH Q12 [facility] Last Admin: 09/23/18 21:56 Dose: 1 puff Sevelamer Carbonate (Renvela) 800 mg PO TID [facility] Last Admin: 09/23/18 16:41 Dose: 800 mg Sitagliptin Phosphate (Januvia) 25 mg PO DAILY [facility] Last Admin: 09/23/18 09:19 Dose: 25 mg - Labs Labs: 09/23/18 04:50 09/24/18 04:30 - Constitutional Appears: No Acute Distress - Head Exam Head Exam: ATRAUMATIC, NORMAL INSPECTION, NORMOCEPHALIC - Eye Exam Eye Exam: EOMI, Normal appearance, PERRL Pupil Exam: NORMAL ACCOMODATION, PERRL - ENT Exam ENT Exam: Mucous Membranes Moist, Normal Exam - Neck Exam Neck Exam: Full ROM, Normal Inspection. absent: Lymphadenopathy - Respiratory Exam Respiratory Exam: Decreased Breath Sounds, Prolonged Expiratory Phase, Rales, NORMAL BREATHING PATTERN - Cardiovascular Exam Cardiovascular Exam: REGULAR RHYTHM, +S1, +S2. absent: Murmur - GI/Abdominal Exam GI & Abdominal Exam: Soft, Normal Bowel Sounds. absent: Tenderness - Rectal Exam Rectal Exam: NORMAL INSPECTION - Extremities Exam Extremities Exam: Full ROM, Normal Capillary Refill, Normal Inspection. absent: Joint Swelling, Pedal Edema - Back Exam Back Exam: NORMAL INSPECTION - Neurological Exam Neurological Exam: Alert, Awake, CN II-XII Intact, Normal Gait, Oriented x3 - Psychiatric Exam Psychiatric exam: Normal Affect, Normal Mood - Skin Skin Exam: Dry, Intact, Normal Color, Warm Assessment and Plan - Assessment and Plan (Free Text) Assessment: CHF--IMPROVED [place] SYNDROME ACUTE KIDNEY INJURY/PRERENAL AZOTEMIA HTN DM TYPE 2--UNCONTROLLED MORBID OBESITY[ELEVATED BMI] COPD ATRIAL FIB--RSR Plan: CONTINUE SLOW IV HYDRATION HOLD DIURETICS MONITOR LYTES AND CBC D/C IV STEROIDS
--- NOTE | 2018-09-24 10:36 | CP.PCM.PN ---
Subjective - Date & Time of Evaluation Date of Evaluation: 09/24/18 Time of Evaluation: 10:00 - Subjective Subjective: feels well no c/o HR 70-76 no sob/becker Objective - Vital Signs/Intake and Output Vital Signs (last 24 hours): Temp Pulse Resp BP Pulse Ox 98.0 F 75 18 135/83 95 09/24/18 07:46 09/24/18 08:23 09/24/18 07:46 09/24/18 08:23 09/24/18 07:46 - Medications Medications: Current Medications Allopurinol (Zyloprim) 100 mg PO BID [facility] Last Admin: 09/24/18 08:27 Dose: 100 mg Apixaban (Eliquis) 2.5 mg PO BID [facility]; Protocol Last Admin: 09/24/18 08:23 Dose: 2.5 mg Atorvastatin Calcium (Lipitor) 10 mg PO DAILY [facility] Last Admin: 09/24/18 08:26 Dose: 10 mg Carvedilol (Coreg) 6.25 mg PO Q12 [facility] Last Admin: 09/24/18 08:23 Dose: 6.25 mg Diltiazem HCl (Cardizem) 30 mg PO TID [facility] Last Admin: 09/24/18 08:23 Dose: 30 mg Furosemide (Lasix) 40 mg PO DAILY [facility] Last Admin: 09/23/18 09:20 Dose: Not Given Glipizide (Glucotrol) 5 mg PO ACB [facility] Hydrochlorothiazide (Microzide) 12.5 mg PO DAILY [facility] Last Admin: 09/23/18 12:27 Dose: 12.5 mg Insulin Human Regular (Humulin R) 0 units SC ACCU-CHECK [facility]; Protocol Last Admin: 09/24/18 08:24 Dose: 3 unit Levalbuterol HCl (Xopenex) 1.25 mg INH RQ8 [facility] Last Admin: 09/24/18 07:50 Dose: 1.25 mg Levothyroxine Sodium (Synthroid) 75 mcg PO DAILY@0630 [facility] Last Admin: 09/24/18 06:27 Dose: 75 mcg Losartan Potassium (Cozaar) 100 mg PO DAILY [facility] Last Admin: 09/23/18 12:25 Dose: 100 mg Montelukast Sodium (Singulair) 10 mg PO DAILY [facility] Last Admin: 09/24/18 08:26 Dose: 10 mg Fluticasone/Salmeterol (Advair Diskus 250/50) 1 puff IH Q12 [facility] Last Admin: 09/24/18 08:22 Dose: 1 puff Sevelamer Carbonate (Renvela) 800 mg PO TID [facility] Last Admin: 09/24/18 08:26 Dose: 800 mg Sitagliptin Phosphate (Januvia) 25 mg PO DAILY [facility] Last Admin: 09/24/18 08:25 Dose: 25 mg - Labs Labs: 09/23/18 04:50 09/24/18 04:30 Assessment and Plan (1) Acute on chronic systolic congestive heart failure Status: Acute (2) Asthma exacerbation Status: Acute
--- NOTE | 2018-09-24 11:50 | CP.PCM.PN ---
Subjective - Date & Time of Evaluation Date of Evaluation: 09/24/18 Time of Evaluation: 11:49 - Subjective Subjective: pt is seen and examined, follow up consult is dictated #[id number] c/w gentle iv hydration bmp in am Objective - Vital Signs/Intake and Output Vital Signs (last 24 hours): Temp Pulse Resp BP Pulse Ox 98.0 F 75 18 135/83 95 09/24/18 07:46 09/24/18 08:23 09/24/18 07:46 09/24/18 08:23 09/24/18 07:46 - Medications Medications: Current Medications Allopurinol (Zyloprim) 100 mg PO BID [facility] Last Admin: 09/24/18 08:27 Dose: 100 mg Apixaban (Eliquis) 2.5 mg PO BID [facility]; Protocol Last Admin: 09/24/18 08:23 Dose: 2.5 mg Atorvastatin Calcium (Lipitor) 10 mg PO DAILY [facility] Last Admin: 09/24/18 08:26 Dose: 10 mg Carvedilol (Coreg) 6.25 mg PO Q12 [facility] Last Admin: 09/24/18 08:23 Dose: 6.25 mg Diltiazem HCl (Cardizem) 30 mg PO TID [facility] Last Admin: 09/24/18 08:23 Dose: 30 mg Furosemide (Lasix) 40 mg PO DAILY [facility] Last Admin: 09/23/18 09:20 Dose: Not Given Glipizide (Glucotrol) 5 mg PO ACB [facility] Hydrochlorothiazide (Microzide) 12.5 mg PO DAILY [facility] Last Admin: 09/23/18 12:27 Dose: 12.5 mg Insulin Human Regular (Humulin R) 0 units SC ACCU-CHECK [facility]; Protocol Last Admin: 09/24/18 08:24 Dose: 3 unit Levalbuterol HCl (Xopenex) 1.25 mg INH RQ8 [facility] Last Admin: 09/24/18 07:50 Dose: 1.25 mg Levothyroxine Sodium (Synthroid) 75 mcg PO DAILY@0630 [facility] Last Admin: 09/24/18 06:27 Dose: 75 mcg Losartan Potassium (Cozaar) 100 mg PO DAILY [facility] Last Admin: 09/23/18 12:25 Dose: 100 mg Montelukast Sodium (Singulair) 10 mg PO DAILY [facility] Last Admin: 09/24/18 08:26 Dose: 10 mg Fluticasone/Salmeterol (Advair Diskus 250/50) 1 puff IH Q12 [facility] Last Admin: 09/24/18 08:22 Dose: 1 puff Sevelamer Carbonate (Renvela) 800 mg PO TID [facility] Last Admin: 09/24/18 08:26 Dose: 800 mg Sitagliptin Phosphate (Januvia) 25 mg PO DAILY [facility] Last Admin: 09/24/18 08:25 Dose: 25 mg - Labs Labs: 09/23/18 04:50 09/24/18 04:30
--- NOTE | 2018-09-25 04:45 | PN ---
DATE: 09/24/2018 FOLLOWUP RENAL CONSULTATION LOCATION: The patient is located in room 401, bed 1. REQUESTED BY: Vivek Erazo MD SUBJECTIVE: Ms. Shea is a 63-year-old obese female with a past medical history significant for COPD, asthma, hypertension, diabetes, chronic kidney disease, insomnia and sleep apnea, was admitted initially on 09/19/2018 with shortness of breath and dry cough. The patient was treated for COPD, exacerbation and mild CHF. Her hospital course is complicated by worsening renal function and renal consult was requested for further evaluation. The patient is not in acute distress. Denies any headache, dizziness. Denies any chest pain, palpitation. Denies any fever, cough. No abdominal pain. No nausea, vomiting, diarrhea. The patient is feeling slightly better today. PHYSICAL EXAMINATION: VITAL SIGNS: This morning as follows: Blood pressure 135/83, pulse 75, respirations about 18, temperature 98, saturation 93% on 2 liters nasal cannula. Height 5 feet 1 inch and weight is 218 pounds. GENERAL: Ms. Shea is a 63-year-old elderly, obese female, well built, well nourished, not in distress. HEENT: Pupils normal and reactive to light and accommodation. Conjunctivae pink. Sclerae anicteric. Tongue is moist. Trachea is midline. LUNGS: Symmetric on both sides. Bilateral breath sounds present. No crackles. CARDIOVASCULAR SYSTEM: [place] at the fifth intercostal space, midclavicular line. S1 and S2 audible. No murmur or gallop. ABDOMEN: Normal in appearance, soft, tympanitic. No guarding. No rigidity. No hepatosplenomegaly. CENTRAL NERVOUS SYSTEM: The patient is alert, awake, oriented x3. Nonfocal neuro examination. Cranial nerves II through XII grossly intact. Sensory and motor system is within normal limits. EXTREMITIES: No cyanosis, no clubbing, no edema. CURRENT MEDICATIONS: Advair one puff every 12 hours, Cardizem 30 mg p.o. t.i.d., Coreg 6.25 mg p.o. every 12 hours, losartan 100 mg p.o. daily, Eliquis 2.5 mg p.o. b.i.d., glipizide 5 mg p.o. before meal, Humulin R per sliding scale, Januvia 25 mg p.o. daily, Lasix on hold, Lipitor 10 mg at bedtime, hydrochlorothiazide 12.5 mg p.o. daily, Renvela 18 mg p.o. t.i.d., Singulair 10 mg p.o. daily, IV fluids half normal saline 60 mL/hour, Synthroid 75 mcg daily, Xopenex and allopurinol. LABORATORY DATA: Include as follows as of 09/24/2018, sodium 134, potassium 4.6, chloride 92, CO2 of 29, BUN 112, creatinine is 3, glucose 287, calcium 9.5. As of 09/23/2018, urine osmolality 437, urine sodium is 19, urine potassium is 29.5. ASSESSMENT: In summary, Ms. Shea is a 63-year-old elderly obese female with history of hypertension, diabetes, chronic kidney disease, sleep apnea, chronic obstructive pulmonary disease, asthma, was admitted with dry cough, shortness of breath, wheezing and being treated initially for chronic obstructive pulmonary disease exacerbation and mild congestive heart failure with worsening renal function. 1. Acute renal failure on chronic kidney disease, secondary to vigorous diuresis. 2. Hypertension. 3. Diabetes. 4. Chronic obstructive pulmonary disease exacerbation, improving. PLAN: The patient was on steroids, the steroids were discontinued. I agree with the plan, continue gentle intravenous hydration for another 24 hours and repeat BMP in a.m. If IV lines cannot be placed due to poor IV access, consider increased p.o. fluid intake. Discuss with the patient and patient nursing rounds. Thank you for allowing me to participate in your patient's care. Dee Hamlin MD
[2018-09-25 05:28] LABS: BASO % 0.1 % (0.0-2.0); EOS % 0.1 % (0.0-4.0); HEMOGLOBIN 16.1 g/dL (12.0-16.0); LYMPH # 0.7 K/uL (1.0-4.3); LYMPH % 5.3 % (20.0-40.0); MEAN CELL VOLUME 87.5 fl (81.0-99.0); MEAN CORPUSCULAR HEMOGLOBIN 28.8 pg (27.0-31.0); MEAN PLATELET VOLUME 9.2 fl (7.2-11.7); MONO # 0.5 K/uL (0.0-0.8); MONO % 3.5 % (0.0-10.0); NEUT # 11.7 K/uL (1.8-7.0); NRBC % 0.2 % (0.0-0.0); PLATELET COUNT 268 K/uL (130-400); RBC 5.59 Mil/uL (3.80-5.20); RED CELL DISTRIBUTION WIDTH 20.9 % (11.5-14.5); WHITE BLOOD COUNT 12.9 K/uL (4.8-10.8)
[2018-09-25] MEDS: Levothyroxine 75 MCG TAB PO SCH (06:12)
[2018-09-25 06:16] LABS: CALCIUM 9.9 mg/dL (8.4-10.2)
[2018-09-25] MEDS: Levalbuterol 1.25 MG/3 ML Inhal Soln UD INH SCH ×3 (08:03→23:59)
--- NOTE | 2018-09-25 08:46 | CP.PCM.PN ---
Subjective - Date & Time of Evaluation Date of Evaluation: 09/25/18 Time of Evaluation: 08:47 - Subjective Subjective: NO APPARENT DISTRESS SOB IMPROVED COUGH LESS REFUSED ABGS POOR IV ACCESS Objective - Vital Signs/Intake and Output Vital Signs (last 24 hours): Temp Pulse Resp BP Pulse Ox 98.0 F 83 18 113/78 93 L 09/25/18 07:52 09/25/18 07:52 09/25/18 07:52 09/25/18 07:52 09/25/18 07:52 Intake and Output: 09/25/18 09/25/18 06:59 18:59 Intake Total 400 Balance 400 - Medications Medications: Current Medications Allopurinol (Zyloprim) 100 mg PO BID [facility] Last Admin: 09/24/18 16:40 Dose: 100 mg Apixaban (Eliquis) 2.5 mg PO BID [facility]; Protocol Last Admin: 09/24/18 16:40 Dose: 2.5 mg Atorvastatin Calcium (Lipitor) 10 mg PO DAILY [facility] Last Admin: 09/24/18 08:26 Dose: 10 mg Carvedilol (Coreg) 6.25 mg PO Q12 [facility] Last Admin: 09/24/18 22:00 Dose: 6.25 mg Diltiazem HCl (Cardizem) 30 mg PO TID [facility] Last Admin: 09/24/18 16:37 Dose: 30 mg Furosemide (Lasix) 40 mg PO DAILY [facility] Last Admin: 09/23/18 09:20 Dose: Not Given Glipizide (Glucotrol) 5 mg PO ACB [facility] Last Admin: 09/24/18 10:35 Dose: 5 mg Hydrochlorothiazide (Microzide) 12.5 mg PO DAILY [facility] Last Admin: 09/24/18 16:39 Dose: 12.5 mg Sodium Chloride (Sodium Chloride 0.45%) 1,000 mls @ 60 mls/hr IV .[id number] [facility] Stop: 09/26/18 11:50 Last Admin: 09/24/18 12:32 Dose: 60 mls/hr Insulin Human Regular (Humulin R) 0 units SC ACCU-CHECK [facility]; Protocol Last Admin: 09/24/18 22:01 Dose: Not Given Levalbuterol HCl (Xopenex) 1.25 mg INH RQ8 [facility] Last Admin: 09/25/18 08:03 Dose: 1.25 mg Levothyroxine Sodium (Synthroid) 75 mcg PO DAILY@0630 [facility] Last Admin: 09/25/18 06:12 Dose: 75 mcg Losartan Potassium (Cozaar) 100 mg PO DAILY [facility] Last Admin: 09/24/18 12:29 Dose: 100 mg Montelukast Sodium (Singulair) 10 mg PO DAILY [facility] Last Admin: 09/24/18 08:26 Dose: 10 mg Fluticasone/Salmeterol (Advair Diskus 250/50) 1 puff IH Q12 [facility] Last Admin: 09/24/18 21:59 Dose: 1 puff Sevelamer Carbonate (Renvela) 800 mg PO TID [facility] Last Admin: 09/24/18 16:39 Dose: 800 mg Sitagliptin Phosphate (Januvia) 25 mg PO DAILY [facility] Last Admin: 09/24/18 08:25 Dose: 25 mg - Labs Labs: 09/25/18 04:25 09/25/18 04:25 - Constitutional Appears: No Acute Distress - Head Exam Head Exam: ATRAUMATIC, NORMAL INSPECTION, NORMOCEPHALIC - Eye Exam Eye Exam: EOMI, Normal appearance, PERRL Pupil Exam: NORMAL ACCOMODATION, PERRL - ENT Exam ENT Exam: Mucous Membranes Moist, Normal Exam - Neck Exam Neck Exam: Full ROM, Normal Inspection. absent: Lymphadenopathy - Respiratory Exam Respiratory Exam: Prolonged Expiratory Phase, NORMAL BREATHING PATTERN - Cardiovascular Exam Cardiovascular Exam: REGULAR RHYTHM, +S1, +S2. absent: Murmur - GI/Abdominal Exam GI & Abdominal Exam: Soft, Normal Bowel Sounds. absent: Tenderness - Rectal Exam Rectal Exam: NORMAL INSPECTION - Extremities Exam Extremities Exam: Full ROM, Normal Capillary Refill, Normal Inspection. absent: Joint Swelling, Pedal Edema - Back Exam Back Exam: NORMAL INSPECTION - Neurological Exam Neurological Exam: Alert, Awake, CN II-XII Intact, Normal Gait, Oriented x3 - Psychiatric Exam Psychiatric exam: Normal Affect, Normal Mood - Skin Skin Exam: Dry, Intact, Normal Color, Warm Assessment and Plan - Assessment and Plan (Free Text) Assessment: ACUTE KIDNEY INJURY--IMPROVING CHF--IMPROVED COPD--IMPROVED MORBID OBESITY [place] SYNDROME HTN DM--IMPROVING Plan: CONTINUE CURRENT RX SLOW IV HYDRATION D/C HOME IN AM IF STABLE
[2018-09-25] MEDS: Fluticasone-Salmeterol 250-50mcg Diskus IH SCH ×2 (09:02→21:29)
[2018-09-25] MEDS: Insulin Regular 100 units/ml SC SCH ×4 (09:07→23:00)
--- NOTE | 2018-09-25 10:05 | CP.PCM.PN ---
Subjective - Date & Time of Evaluation Date of Evaluation: 09/25/18 Time of Evaluation: 10:04 - Subjective Subjective: pt is seen and examined, follow up consult is dictated #[id number] Objective - Vital Signs/Intake and Output Vital Signs (last 24 hours): Temp Pulse Resp BP Pulse Ox 98.0 F 83 18 113/78 93 L 09/25/18 07:52 09/25/18 09:04 09/25/18 07:52 09/25/18 09:04 09/25/18 09:03 Intake and Output: 09/25/18 09/25/18 06:59 18:59 Intake Total 400 Balance 400 - Medications Medications: Current Medications Allopurinol (Zyloprim) 100 mg PO BID [facility] Last Admin: 09/25/18 09:09 Dose: 100 mg Apixaban (Eliquis) 2.5 mg PO BID [facility]; Protocol Last Admin: 09/25/18 09:06 Dose: 2.5 mg Atorvastatin Calcium (Lipitor) 10 mg PO DAILY [facility] Last Admin: 09/25/18 09:08 Dose: 10 mg Carvedilol (Coreg) 6.25 mg PO Q12 [facility] Last Admin: 09/25/18 09:04 Dose: 6.25 mg Diltiazem HCl (Cardizem) 30 mg PO TID [facility] Last Admin: 09/25/18 09:03 Dose: 30 mg Furosemide (Lasix) 40 mg PO DAILY [facility] Last Admin: 09/23/18 09:20 Dose: Not Given Glipizide (Glucotrol) 5 mg PO ACB [facility] Last Admin: 09/25/18 09:06 Dose: 5 mg Hydrochlorothiazide (Microzide) 12.5 mg PO DAILY [facility] Last Admin: 09/25/18 09:08 Dose: 12.5 mg Sodium Chloride (Sodium Chloride 0.45%) 1,000 mls @ 60 mls/hr IV .[id number] [facility] Stop: 09/26/18 11:50 Last Admin: 09/24/18 12:32 Dose: 60 mls/hr Insulin Human Regular (Humulin R) 0 units SC ACCU-CHECK [facility]; Protocol Last Admin: 09/25/18 09:07 Dose: 2 unit Levalbuterol HCl (Xopenex) 1.25 mg INH RQ8 [facility] Last Admin: 09/25/18 08:03 Dose: 1.25 mg Levothyroxine Sodium (Synthroid) 75 mcg PO DAILY@0630 [facility] Last Admin: 09/25/18 06:12 Dose: 75 mcg Losartan Potassium (Cozaar) 100 mg PO DAILY [facility] Last Admin: 09/24/18 12:29 Dose: 100 mg Montelukast Sodium (Singulair) 10 mg PO DAILY [facility] Last Admin: 09/25/18 09:08 Dose: 10 mg Fluticasone/Salmeterol (Advair Diskus 250/50) 1 puff IH Q12 [facility] Last Admin: 09/25/18 09:02 Dose: 1 puff Sevelamer Carbonate (Renvela) 800 mg PO TID [facility] Last Admin: 09/25/18 09:08 Dose: 800 mg Sitagliptin Phosphate (Januvia) 25 mg PO DAILY [facility] Last Admin: 09/25/18 09:07 Dose: 25 mg - Labs Labs: 09/25/18 04:25 09/25/18 04:25
[2018-09-25 10:07] LABS: ANISOCYTOSIS MODERATE; LYMPHOCYTE 6 % (20-50); MONOCYTE 7 % (0-10); NEUTROPHIL 87 % (42-75); PLATELET ESTIMATE NORMAL (NORMAL); TOTAL CELLS COUNTED 100
[2018-09-25 10:08] LABS: GIANT PLATELETS PRESENT; PLATELET CLUMPS PRESENT
[2018-09-25] MEDS: Sodium Chloride 0.45% 1,000 ML IV SCH ×2 (15:35→22:00)
[2018-09-26] MEDS: Levothyroxine 75 MCG TAB PO SCH (06:43)
[2018-09-26] MEDS: Insulin Regular 100 units/ml SC SCH ×2 (06:44→12:09)
[2018-09-26 06:58] LABS: CALCIUM 9.5 mg/dL (8.4-10.2)
[2018-09-26] MEDS: Levalbuterol 1.25 MG/3 ML Inhal Soln UD INH SCH (07:21)
--- NOTE | 2018-09-26 08:09 | PN ---
DATE: 09/25/2018 FOLLOWUP RENAL CONSULTATION LOCATION: The patient is located in room 401, bed 1. REASON FOR FOLLOWUP: Acute renal failure, chronic kidney disease. SUBJECTIVE: The patient is a 63-year-old obese female with a past medical history significant for hypertension, diabetes, COPD, asthma, sleep apnea, chronic kidney disease who was admitted with the chief complaints of shortness of breath and dry cough. The patient was also wheezing on admission. The patient was admitted for acute exacerbation of COPD, asthma, and CHF, status post diuretics. Her hospital course complicated by worsening renal function. The patient denies any chest pain or palpitation. Denies any shortness of breath this morning. The patient is out of bed to chair. PHYSICAL EXAMINATION: VITAL SIGNS: As follows. Blood pressure 113/78, pulse 83, respirations 18, temperature 97.6, saturation 93%. Height 5 feet 1 inch. Weight is 218 pounds. GENERAL: The patient is a 63-year-old elderly female, moderately built, moderately nourished, not in distress. HEENT: Pupils normal and reactive to light and accommodation. Conjunctivae pink. Sclerae anicteric. Tongue is moist. Trachea is midline. LUNGS: Symmetric on both sides. Bilateral breath sounds present. Clear to auscultation. CARDIOVASCULAR SYSTEM: [place] at the fifth intercostal space, midclavicular line. S1 and S2 audible. No murmur or gallop. ABDOMEN: Normal in appearance. Soft, tympanitic. No guarding. No rigidity. No hepatosplenomegaly. CENTRAL NERVOUS SYSTEM: The patient is alert, awake, oriented x3. Nonfocal neuro examination. Cranial nerves II through XII grossly intact. Sensory and motor system is within normal limits. EXTREMITIES: No cyanosis. No clubbing. No edema. CURRENT MEDICATIONS: Include as follows: Advair one puff every 12 hours, Cardizem 30 mg p.o. t.i.d., Coreg 6.25 mg p.o. every 12 hours, losartan 100 mg p.o. daily, Eliquis 2.5 mg p.o. b.i.d., Glucotrol 5 mg p.o. before breakfast, Januvia 25 mg p.o. daily, Lasix on hold and hydrochlorothiazide on hold this morning, Lipitor 10 mg p.o. daily, Singulair 10 mg daily, Renvela 800 mg p.o. t.i.d., IV fluids half normal saline at 60 mL per hour, Synthroid 75 mcg p.o. daily, Xopenex 1.25 mg every 8 hours, and allopurinol 100 mg p.o. b.i.d. LABORATORY DATA: Include as follows: As of 09/25/2018, WBC 12.9, hemoglobin 16.2, hematocrit is 48.9, platelets 260. Sodium 134, potassium 4.9, chloride 93, CO2 of 29, BUN 116, creatinine 2.6, glucose 238, calcium 9.9. ASSESSMENT: In summary, the patient is a 63-year-old elderly obese female with hypertension, diabetes, chronic obstructive pulmonary disease, asthma, sleep apnea, chronic kidney disease who was admitted with cough and shortness of breath who was treated for acute exacerbation of chronic obstructive pulmonary disease and congestive heart failure with worsening renal function, off diuretics and started on gentle intravenous hydration. 1. Acute renal failure on chronic kidney disease secondary to vigorous diuresis. The patient is off diuretics now. Continue gentle intravenous hydration, half normal saline 60 mL per hour for another 24 hours. The patient was not able to get intravenous fluids yesterday due to lack of intravenous line. We will encourage oral fluid intake. 2. Hypertension. 3. Diabetes. 4. Chronic obstructive pulmonary disease. PLAN: Check BMP in a.m. Encourage p.o. fluid. We will follow with you. Thank you for allowing me to participate in your patient's care. Case discussed with Dr. Erazo in rounds. Dee Hamlin MD
[2018-09-26] MEDS: Fluticasone-Salmeterol 250-50mcg Diskus IH SCH (08:31)
[2018-09-26] MEDS: Sodium Chloride 0.45% 1,000 ML IV SCH (08:37)
--- NOTE | 2018-09-26 10:00 | CP.PCM.DIS ---
Provider - Provider Date of Admission: 09/20/18 14:24 Attending physician: Vivek Erazo MD Consults: 09/19/18 22:18 Cardiology Consult Routine Comment: Consulting Provider: Riki Christy Consulting Physician: Riki Christy Reason for Consult: CHF 09/19/18 23:20 Case Management Referral Routine Comment: Physician Instructions: Reason For Exam: has a homemaker @ home Reason for Referral: Discharge Planning 09/23/18 09:00 Nephrology Consult Routine Comment: Consulting Provider: Dee Hamlin Consulting Physician: Dee Hamlin Reason for Consult: ACUTE KIDNEY INJURY Time Spent in preparation of Discharge (in minutes): 35 Diagnosis - Discharge Diagnosis (1) Atrial fibrillation Status: Acute (2) Acute on chronic systolic congestive heart failure Status: Acute (3) CHF exacerbation Status: Acute (4) COPD (chronic obstructive pulmonary disease) Status: Acute (5) DADA (acute kidney injury) Status: Acute (6) HTN (hypertension) Status: Acute (7) Morbid obesity Status: Acute (8) Sleep apnea Status: Acute (9) Chronic congestive heart failure Status: Chronic (10) Diabetes mellitus with nephropathy Status: Chronic (11) COPD exacerbation Status: Resolved Hospital Course - Lab Results Lab Results: Most Recent Lab Values WBC 12.9 K/uL (4.8-10.8) H 09/25/18 04:25 RBC 5.59 Mil/uL (3.80-5.20) H 09/25/18 04:25 Hgb 16.1 g/dL (12.0-16.0) H 09/25/18 04:25 Hct 48.9 % (34.0-47.0) H 09/25/18 04:25 MCV 87.5 fl (81.0-99.0) 09/25/18 04:25 MCH 28.8 pg (27.0-31.0) 09/25/18 04:25 MCHC 33.0 g/dL (33.0-37.0) 09/25/18 04:25 RDW 20.9 % (11.5-14.5) H 09/25/18 04:25 Plt Count 268 K/uL (130-400) 09/25/18 04:25 MPV 9.2 fl (7.2-11.7) 09/25/18 04:25 Neut % (Auto) 91.0 % (50.0-75.0) H 09/25/18 04:25 Lymph % (Auto) 5.3 % (20.0-40.0) L 09/25/18 04:25 Mcclain % (Auto) 3.5 % (0.0-10.0) 09/25/18 04:25 Eos % (Auto) 0.1 % (0.0-4.0) 09/25/18 04:25 Baso % (Auto) 0.1 % (0.0-2.0) 09/25/18 04:25 Neut # (Auto) 11.7 K/uL (1.8-7.0) H 09/25/18 04:25 Lymph # (Auto) 0.7 K/uL (1.0-4.3) L 09/25/18 04:25 Mcclain # (Auto) 0.5 K/uL (0.0-0.8) 09/25/18 04:25 Eos # (Auto) 0.0 K/uL (0.0-0.7) 09/25/18 04:25 Baso # (Auto) 0.0 K/uL (0.0-0.2) 09/25/18 04:25 Neutrophils % (Manual) 87 % (42-75) H 09/25/18 04:25 Band Neutrophils % 2 % (0-2) 09/19/18 17:50 Lymphocytes % (Manual) 6 % (20-50) L 09/25/18 04:25 Monocytes % (Manual) 7 % (0-10) 09/25/18 04:25 Eosinophils % (Manual) 3 % (0-7) 09/19/18 17:50 Basophils % (Manual) 1 % (0-2) 09/19/18 17:50 Platelet Estimate Normal (NORMAL) 09/25/18 04:25 Plt Clumps, EDTA Present 09/25/18 04:25 Giant Platelets Present 09/25/18 04:25 Hypochromasia (manual) Slight 09/19/18 17:50 Anisocytosis (manual) Moderate 09/25/18 04:25 pCO2 54 mm/Hg (35-45) H 09/19/18 17:12 pO2 52 mm/Hg (80-100) L 09/19/18 17:12 HCO3 27.3 mmol/L (21-28) 09/19/18 17:12 ABG pH 7.36 (7.35-7.45) 09/19/18 17:12 ABG Total CO2 32.2 mmol/L (22-28) H 09/19/18 17:12 ABG O2 Saturation 91.3 % (95-98) L 09/19/18 17:12 ABG O2 Content 19.1 ML/dL (15-23) 09/19/18 17:12 ABG Base Excess 3.5 mmol/L (-2.0-3.0) H 09/19/18 17:12 ABG Hemoglobin 15.8 g/dL (11.7-17.4) 09/19/18 17:12 ABG Carboxyhemoglobin 3.4 % (0.5-1.5) H 09/19/18 17:12 POC ABG HHb (Measured) 8.2 % (0.0-5.0) H 09/19/18 17:12 ABG Methemoglobin 2.3 % (0.0-3.0) 09/19/18 17:12 ABG O2 Capacity 20.9 mL/dL (16-24) 09/19/18 17:12 Hugo Test Yes 09/19/18 17:12 A-a O2 Difference 94.0 mm/Hg 09/19/18 17:12 Hgb O2 Saturation 86.1 % (95.0-98.0) L 09/19/18 17:12 FiO2 30.0 % 09/19/18 17:12 Blood Gas Comments 2l/m.nc 09/19/18 17:12 Crit Value Read Back N 09/19/18 17:12 Sodium 135 mmol/l (132-148) 09/26/18 05:45 Potassium 4.6 MMOL/L (3.6-5.0) 09/26/18 05:45 Chloride 98 mmol/L (98-107) 09/26/18 05:45 Carbon Dioxide 27 mmol/L (22-30) 09/26/18 05:45 Anion Gap 15 (10-20) 09/26/18 05:45 BUN 105 mg/dl (7-17) H* 09/26/18 05:45 Creatinine 2.3 mg/dl (0.7-1.2) H 09/26/18 05:45 Est GFR ( Amer) 26 09/26/18 05:45 Est GFR (Non-Af Amer) 09/26/18 05:45 POC Glucose (mg/dL) 136 mg/dL (65-110) H 09/26/18 05:17 Random Glucose 135 mg/dL (65-105) H 09/26/18 05:45 Calcium 9.5 mg/dL (8.4-10.2) 09/26/18 05:45 Troponin I 0.0290 ng/mL (0.00-0.120) 09/20/18 06:30 NT-Pro-B Natriuret Pep 6080 pg/ml (0-900) H 09/22/18 04:30 Triglycerides 56 mg/DL (0-149) 09/20/18 06:30 Cholesterol 140 mg/dL (0-199) 09/20/18 06:30 LDL Cholesterol Direct 45 mg/dL (0-129) 09/20/18 06:30 HDL Cholesterol 81 MG/DL (30-70) H 09/20/18 06:30 Thyroxine (T4) 5.88 ug/dl (5.5-11.0) 09/20/18 06:30 TSH 3rd Generation 0.94 mIU/ML (0.46-4.68) 09/20/18 06:30 Urine Osmolality 437 mosm/kg (300-1000) 09/23/18 21:05 Ur Random Creatinine 72.8 mg/dL 09/23/18 09:15 Ur Random Sodium 19 meq/L 09/23/18 21:05 Ur Random Potassium 29.5 mmol/L 09/23/18 21:05 - Hospital Course Hospital Course: FEELS BETTER SOB RESOLVED KIDNEY FUNCTION IMPROVED WITH HYDRATION Discharge Exam - Head Exam Head Exam: ATRAUMATIC, NORMAL INSPECTION, NORMOCEPHALIC Discharge Plan - Follow Up Plan Condition: FAIR Disposition: HOME/ ROUTINE Instructions: Heart Failure, Adult (DC), Exacerbation of COPD (DC) Additional Instructions: follow up appt with on 09/27/18 at 1:30pm Referrals: Riki Christy MD [Staff Provider] - Vivek Erazo MD [Staff Provider] -
[2018-09-26 12:10] VITALS: BP 113/69; PULSE 90; RESP 20; O2SAT 97
[2018-09-26 12:17] VITALS: TEMP 98.3
== END 2018-09-26 16:00 | disposition home health service (06) | DRG 292 ==
LOC: H.ER 16:25 → H.ERHOLD 18:58 → H.TEL 21:45 → OBSVTOIN 09-20 14:24
PROVIDERS: ADMIT Internal Medicine Pulmonary Disease; ATTEND Internal Medicine Pulmonary Disease
PROC: 05HF33Z Insertion of Infusion Device into Left Cephalic Vein, Percutaneous Approach (ICD-10-PCS; principal; 2018-09-25)
PROC: B54NZZA Ultrasonography of Left Upper Extremity Veins, Guidance (ICD-10-PCS; 2018-09-25)
DX: I50.23 Acute on chronic systolic (congestive) heart failure (principal); I13.0 Hypertensive heart and chronic kidney disease with heart failure and stage 1 through stage 4 chronic kidney disease, or unspecified chronic kidney disease; J44.1 Chronic obstructive pulmonary disease with (acute) exacerbation; N17.9 Acute kidney failure, unspecified; J45.901 Unspecified asthma with (acute) exacerbation; Z68.41 Body mass index [BMI] 40.0-44.9, adult; N18.9 Chronic kidney disease, unspecified; R09.02 Hypoxemia; E11.21 Type 2 diabetes mellitus with diabetic nephropathy; E11.22 Type 2 diabetes mellitus with diabetic chronic kidney disease; E66.01 Morbid (severe) obesity due to excess calories; I25.10 Atherosclerotic heart disease of native coronary artery without angina pectoris; I48.91 Unspecified atrial fibrillation; D72.828 Other elevated white blood cell count; E11.65 Type 2 diabetes mellitus with hyperglycemia; G47.33 Obstructive sleep apnea (adult) (pediatric); E03.9 Hypothyroidism, unspecified; E78.5 Hyperlipidemia, unspecified; E78.00 Pure hypercholesterolemia, unspecified; M19.90 Unspecified osteoarthritis, unspecified site; Z99.81 Dependence on supplemental oxygen; Z79.84 Long term (current) use of oral hypoglycemic drugs; Z87.891 Personal history of nicotine dependence